=== PATIENT | female | born 1975 | race Caucasian/White ===

== ENCOUNTER → 2018-03-24 00:11 | Outpatient (CLI) | payer BC, SELFPAY ==
--- NOTE | 2018-03-24 10:44 | DI.REPORT_ITS ---
SYMPTOM/DIAGNOSIS: PREVENTIVE CARE Z00.00, SCREENING BILATERAL SCREENING MAMMOGRAM: Mammograms were interpreted according to the usual protocol including computer analysis with CAD system, tomosynthesis and C view imaging. Comparison is made with exams from 2009 through 2016. The breasts are composed of heterogeneously dense fibroglandular tissue, breast density Category C. No suspicious masses or suspicious microcalcifications are seen. There has been no significant change. IMPRESSION: Category 1-C, negative mammogram. Yearly screening mammography is recommended. [facility] ASSESSMENT OF FINDINGS: Negative. Category 1. Patient will receive a letter notifying them of these results. Bi-RADS category C. The breasts are heterogeneously dense, which may obscure small masses.
== END ==
PROVIDERS: PCP Family Medicine; Visit Provider Nurse Practitioner Family
DX: Z12.31 Encounter for screening mammogram for malignant neoplasm of breast (principal)
CPT/HCPCS: 77063; 77067

== ENCOUNTER 2018-12-15 09:04 | Outpatient (REF) | payer BC, SELFPAY ==
[2018-12-15 12:48] LABS: TSH (W/Ref FT4) 3.15 uIU/mL (0.358-3.74)
== END 2018-12-15 09:24 ==
LOC: NCHCN 09:04
PROVIDERS: PCP Family Medicine; Visit Provider Nurse Practitioner Family
DX: R53.83 Other fatigue (principal)
CPT/HCPCS: 84443

== ENCOUNTER 2019-07-06 01:36 | Outpatient (CLI) | payer BC, SELFPAY ==
--- NOTE | 2019-07-06 16:15 | DI.MAMMO_ITS ---
EXAM: MG MAMMO SCREENING CLINICAL HISTORY: SCREENING, Z12.31, PREVENTATIVE CARE, Z00.00 TECHNIQUE: Bilateral full field digital CC and MLO mammographic images were obtained with 3D tomosyn thesis and utilizing computer aided detection (CAD). COMPARISON: Available for comparison. FINDINGS: Masses/Architectural Distortion: None seen. Microcalcifications: No suspicious pleomorphic-type are seen. Skin Thickening/Nipple Retraction: None. IMPRESSION: 1. No significant interval change with no specific features of malignancy noted. 2. Unless there is more urgent need, screening mammography is recommended, as per [place] [employer] guidelines. ACR BI-RAD Category- 1 Negative Breast Density - Category C - Heterogeneously dense The mammogram demonstrates the patient's breast tissue is dense. Dense breast tissue is very common a nd is not abnormal but dense breast tissue can make it harder to find cancer on a mammogram. Also, de nse breast tissue may increase their breast cancer risk. This information about the result of the [facility] mogram report was provided to the patient to raise their awareness. Use this report when you speak wi th the patient about their risks for breast cancer, which includes their family history. At that time , you may recommend for more screening tests (Ultrasound or MRI) as they might be useful based on the ir risk. A negative radiographic report should not delay biopsy if a dominant or clinically suspicious mass is present. Up to ten percent of cancers are not identified on mammography. A negative report may reinforce clinical impression. Adenosis and dense breasts may obscure an underlying neoplasm. False positive reports average 6 to 10%. Patient will receive a letter notifying them of these results.
== END 2019-07-06 01:56 ==
PROVIDERS: PCP Family Medicine; Visit Provider Nurse Practitioner Family
DX: Z12.31 Encounter for screening mammogram for malignant neoplasm of breast (principal)
CPT/HCPCS: 77063; 77067

== ENCOUNTER 2020-08-05 01:00 | Outpatient (CLI) | payer BC, SELFPAY ==
--- NOTE | 2020-08-05 16:10 | DI.MAMMO_ITS ---
EXAM: MG MAMMO SCREENING CLINICAL HISTORY: SCREENING,[facility],Z00.00 TECHNIQUE: Bilateral full field digital CC and MLO mammographic images were obtained with 3D tomosyn thesis and utilizing computer aided detection (CAD). COMPARISON: Available for comparison. FINDINGS: Masses/Architectural Distortion: None seen. Microcalcifications: No suspicious pleomorphic-type are seen. Skin Thickening/Nipple Retraction: None. IMPRESSION: 1. No significant interval change with no specific features of malignancy noted. 2. Unless there is more urgent need, screening mammography is recommended, as per [place] [employer] guidelines. BI-RADS Category 1 - Negative Breast Density - Category C - Heterogeneously dense Breast density category C or D implies that the patient has dense breast tissue. Dense breast tissue is very common and is not abnormal but dense breast tissue can make it harder to find cancer on a ma mmogram. Also, dense breast tissue may increase their breast cancer risk. This information about the result of the mammogram report was provided to the patient to raise their awareness. Use this report when you speak with the patient about their risks for breast cancer, which includes their family hist ory. At that time, you may recommend for more screening tests (Ultrasound or MRI) as they might be us eful based on their risk. A negative radiographic report should not delay biopsy if a dominant or clinically suspicious mass is present. Up to ten percent of cancers are not identified on mammography. A negative report may reinforce clinical impression. Adenosis and dense breasts may obscure an underlying neoplasm. False positive reports average 6 to 10%. Patient will receive a letter notifying them of these results.
== END 2020-08-05 01:20 ==
PROVIDERS: PCP Family Medicine; Visit Provider Nurse Practitioner Family
DX: Z12.31 Encounter for screening mammogram for malignant neoplasm of breast (principal); Z00.00 Encounter for general adult medical examination without abnormal findings
CPT/HCPCS: 77063; 77067

== ENCOUNTER 2021-01-09 18:09 | Outpatient (REF) | payer BC, SELFPAY ==
[2021-01-10 08:56] LABS: HCT 37.9 % (36.0-46.0); HGB 12.8 g/dL (11.2-15.7); MCH 30.3 pg (27.0-33.0); MCHC 33.8 % (32.0-36.0); MCV 89.8 fL (80-95); MPV 10.2 fL (8.0-11.0); Platelet Count 283 10^3/uL (130-400); RBC 4.22 10^6/uL (3.93-5.22); RDW 12.4 % (11.7-14.6); RDW-SD 40.5 fL; WBC 6.71 10^3/uL (4.4-10.8)
[2021-01-10 09:31] LABS: Anion Gap 10.4 mmol/L (3-11); BUN 19 mg/dL (7-18); CO2 25.6 mmol/L (21.0-32.0); Calcium 8.9 mg/dL (8.5-10.1); Chloride 105 mmol/L (98-107); Estimated GFR 59.43 (mL/min/1.73m2); Glucose 93 mg/dL (74-106); Sodium 141 mmol/L (136-145); TSH (W/Ref FT4) 2.16 uIU/mL (0.36-3.74)
[2021-01-12 09:24] LABS: HIV-1/2 Ag & Ab Screen Negative (Negative)
== END 2021-01-09 18:10 | disposition home or self-care (01) ==
LOC: NCHCN 18:09
PROVIDERS: PCP Family Medicine; Visit Provider Nurse Practitioner Family
DX: R00.2 Palpitations (principal); G43.909 Migraine, unspecified, not intractable, without status migrainosus; Z11.4 Encounter for screening for human immunodeficiency virus [HIV]
CPT/HCPCS: 80048; 85027; 87389; 84443

== ENCOUNTER 2021-11-28 02:18 | Outpatient (CLI) | payer BC, SELFPAY ==
[2021-11-28 12:15] LABS: Source Nasal/Nares
[2021-11-28 14:27] LABS: COVID-19 PCR Negative (Negative)
== END 2021-11-28 02:19 | disposition home or self-care (01) ==
LOC: LBO 02:18
PROVIDERS: PCP Family Medicine; Visit Provider Surgery
DX: Z20.822 Contact with and (suspected) exposure to COVID-19 (principal); Z01.818 Encounter for other preprocedural examination
CPT/HCPCS: 87635

== ENCOUNTER 2021-12-01 09:10 | Day surgery (SDC) | payer BC, SELFPAY ==
--- NOTE | 2021-12-01 06:32 | W.COLOREPORT ---
Colonoscopy Report Date of procedure: 12/01/21 Pre-op diagnosis general: Colon Cancer Screening Post-op diagnosis procedure note: same Procedure: Colonoscopy Surgeon: Kathy Hawthorne Anesthesia Type: General:No Airway Estimated blood loss (mL): 0 Pathology: none sent Complications: None Disposition: same day Indications: The patient is here for Colonoscopy pre-op.? She has no family history of colon cancer. She has not had any bowel habit changes. -Discussed colonoscopy bowel prep as well as the procedure. Discussed possible complications of the procedure to include bleeding, pain, perforation, missed small lesion/polyp, sore throat, aspiration and adverse reaction to the medications. Questions were answered to patient?s satisfaction. No guarantees were implied or given.? Prep: Miralax/Dulcolax Procedure Start Time: 10:10 Procedure End Time: 10:29 Retraction Time: 12 minutes Findings: Normal colonoscopy Procedure Description: After informed consent was obtained the patient was taken to the procedure room and placed in a left decubitous position. Monitors were applied and a time out was done. The patients name, date of , procedure, allergies to medications and metal in their body was reviewed. The patient was then sedated. Once sedated and comfortable a rectal exam was done. External exam was normal. Internal exam revealed a normal sphincter tone and no palpable masses. The scope was then introduced and retro-flexed. No internal hemorrhoids, polyps or masses were identified on retro-flexion. The scope was then advanced to the cecum without difficulty. The ileocecal vlave and appendiceal orifice were identified. The prep was good. The scope was then slowly retracted over 12 minutes back into the rectum. there were no Polyps. There was no diverticulosis noted. The scope was removed and the patient was woken up and taken back to Same day surgery in stable condition. The patient tolerated the procedure well and there were no immediate complications. Follow up: The patient should follow up in 10 years unless they develop changes in bowel habits or other new gastrointestinal complaints.
--- NOTE | 2021-12-01 06:33 | W.PM.DSUDISC ---
Discharge Plan Disposition Patient Disposition: HOME Condition: Good Discharge Details Reason For Visit: Colonoscopy Attending Provider: Kathy Hawthorne Primary Care Provider: Alee Woodruff Home Meds and New Rx's Prescriptions: Continued riboflavin (vitamin B2) 100 mg tablet 100 mg PO DAILY 0RF magnesium oxide 200 mg magnesium tablet 200 mg PO DAILY 0RF rizatriptan [Maxalt-CHANGE BOOTH ATTENDANT] 10 mg tablet,disintegrating 10 mg PO ONCE PRN0RF Rx Instructions: may repeat once after at least 2 hours ibuprofen [Advil] 200 mg Tablet 200 mg PO Q6H PRN0RF Discontinued bisacodyl [Dulcolax (bisacodyl)] 5 mg tablet,delayed release (DR/EC) 5 mg PO ONCE Qty: 4 0RF Rx Instructions: Take according to provider's instructions for colonoscopy prep. polyethylene glycol 3350 17 gram/dose powder 17 g PO ONCE Qty: 238 0RF Rx Instructions: To be taken as directed by prescriber's office for colonoscopy prep. Discharge Instructions Additional Instructions: Findings: Normal colon Follow up: 10 years Please call if you develop: fevers >101.5 Nausea or Vomiting Abdominal pain that is not transient Rectal bleeding that is more then a tbsp A hard abdomen and inability to pass gas DAY SURGERY UNIT POST ENDOSCOPY INSTRUCTIONS Instructions for everyone who is given Anesthesia: For your safety, please do the following for the next 24 Hours: a. Do not drive or operate dangerous equipment b. Do not drink alcohol beverages or use any recreational drugs for the first 24 hours or while taking pain medications. The medications in your body may have a reaction that can be dangerous. c. Do not make any important decisions or sign any important papers 1. Generally there are no restrictions on your activity after a day or so has gone by, but you may feel a bit fatigued for a few days. 2. After you arrive home you may have a light meal and return to a normal diet as you can tolerate it without feeling sick to your stomach. 3. After surgery, you may feel pain or discomfort. This should be only transient, but if it persists please contact your doctor. 4. If there are any questions regarding the findings of your procedure, please feel free to contact your doctor. 6. If you are unable to contact your doctor with a problem, contact the hospital at [phone]. 7. Continue all your regular medications unless directed otherwise. I understand the above instructions and have no questions. Signature of Patient or Responsible Adult Escort Date/Time Name of Responsible Adult Escort Signature of Nurse Date/Time Activity:: Activity as Tolerated Diet:: As Tolerated Discharge Orders Discharge Orders: Discharge Order (Routine); Ordered 12/01/21 Ordered By: Kathy Hawthorne
--- NOTE | 2021-12-01 09:23 | ANES.PREOP_ITS ---
General Info Height: 5 ft 5 in Weight: 71.668 kg Body Mass Index (BMI): 26.2 Surgical Procedure: Operation Date: 12/01/21 09:50 Proposed Procedure Side Surgeon p Colonoscopy Kathy Hawthorne MD Meds Allergies and Home Medications Allergies Allergy/AdvReac Type Severity Reaction Status Date / Time tramadol AdvReac Intermediate projectile Verified 12/01/21 09:18 vomitting Home Medication Medication Instructions Recorded magnesium oxide 200 mg PO DAILY 05/15/21 riboflavin (vitamin B2) 100 mg 100 mg PO DAILY 05/15/21 tablet rizatriptan 10 mg disintegrating 10 mg PO ONCE PRN 05/15/21 tablet (Maxalt-COMPOUNDING [employer] FINISHING SUPERVISOR) bisacodyl 5 mg tablet,delayed 5 mg PO ONCE #4 tab 11/20/21 release (Dulcolax (bisacodyl)) polyethylene glycol 3350 17 17 g PO ONCE #238 g 11/20/21 gram/dose oral powder ibuprofen 200 mg tablet (Advil) 200 mg PO Q6H PRN 12/01/21 Current Visit Medications: Current Medications Generic Name Dose Route Start Last Admin Trade Name Freq PRN Reason Stop Dose Admin Hyoscyamine Sulfate 0.125 mg 12/01/21 06:34 Hyoscyamine 0.125 Mg Sl/Oral/Chew SL DIRECTED PRN Ringer's Solution 1,000 mls @ 80 mls/hr 12/01/21 06:00 IV 12/28/21 23:59 INFUSION [facility] IV Miscellaneous Supplies 1 each 12/01/21 06:00 Iv Access IV 12/28/21 23:59 DIRECTED ALISON Ondansetron HCl 4 mg 12/01/21 06:34 Ondansetron 4 Mg/2 Ml Vial IVP Q4H PRN PRN Nausea / Vomiting Sodium Chloride 0 ml 12/01/21 06:00 Normal Saline Flush 10 Ml Syr IV 12/28/21 23:59 PRN PRN Sodium Chloride 0 ml 12/01/21 06:00 Normal Saline 10 Ml Vial IJ 12/28/21 23:59 DIRECTED PRN Sterile Water 0 ml 12/01/21 06:00 Water,Injection,Sterile 10 Ml Vial IJ 12/28/21 23:59 DIRECTED PRN PFSH Active Problems Active Problems: Problem Status Onset Code Rosacea L71.9 Bilateral carpal tunnel syndrome G56.03 Adjustment disorder with mixed anxiety and depressed mood F43.23 Palpitations R00.2 Migraines G43.909 Screening for colon cancer Z12.11 Tobacco Smoking/Tobacco Use Status: Never Alcohol Alcohol Intake: current Alcohol intake frequency: a few times a week Alcohol type: beer and wine Substance Use Substance use: Never Substance use type: does not use Vital Signs and Lab Results Lab Results Blood Type / Crossmatch: No Data to Display Complete Blood Count: No Data to Display Complete Metabolic Panel: No Data to Display Liver Function Panel: No Data to Display Coagulation Panel: No Data to Display Cardiac Panel: No Data to Display Arterial Blood Gas: No Data to Display Venous Blood Gas: No Data to Display Pancreas Panel: No Data to Display Thyroid Panel: No Data to Display Infectious Disease: Coronavirus (COVID-19)(PCR) Negative (Negative) 11/28/21 08:18 11/28/21 Coronavirus 2019 Source Nasal/Nares 11/28/21 08:18 11/28/21 Blood Cultures: No Data to Display Toxicology Panel: No Data to Display Panel: No Data to Display Anesthesia Assessment and Plan Anesthesia History Personal History: No History of Anesthesia Complications Family History: No Family History of Anesthesia Complications Exercise Tolerance Exercise Tolerance: Metabolic Equivalents>4 Cardiac & Pulmonary Exam Cardiac Exam: Normal S1/S2 Heart Sounds Pulmonary Exam: Clear Bilateral Breath Sounds Implantable Cardiac Device Does patient have a Pacemaker or an ICD?: No Airway Exam Known Difficult Airway: No ASA Classification ASA Score: ASA 2 Emergency Case?: No NPO Status NPO Status: NPO Clears >2 hours, Solids >8 hours Status Status: Not Relevant due to Medical History Anesthesia Plan Resuscitation Status: Full Code Anesthesia Technique: General Anesthesia Airway Planned: Natural Airway Pain Management: Surgeon and patient request nerve block Monitors Used: Standard Monitors Preoperative Comments:: 46 yo female for screening colo. Sig PMHx: denies major.
[2021-12-01 09:28] VITALS: BP 129/77; PULSE 76; RESP 18; TEMP 36.3; O2SAT 100
--- NOTE | 2021-12-01 09:54 | W.ANESPRE ---
General Info Date of Service Date Performed: 12/01/21 Height: 5 ft 5 in Weight: 69.6 kg Body Mass Index (BMI): 25.5 Surgical Procedure: Operation Date: 12/01/21 09:50 Proposed Procedure Side Surgeon p Colonoscopy Kathy Hawthorne MD Actual Procedure Side Surgeon p Colonoscopy Kathy Hawthorne MD Meds Allergies and Home Medications Allergies Allergy/AdvReac Type Severity Reaction Status Date / Time tramadol AdvReac Intermediate projectile Verified 12/01/21 09:18 vomitting Home Medication Medication Instructions Recorded magnesium oxide 200 mg PO DAILY 05/15/21 riboflavin (vitamin B2) 100 mg 100 mg PO DAILY 05/15/21 tablet rizatriptan 10 mg disintegrating 10 mg PO ONCE PRN 05/15/21 tablet (Maxalt-TICKET SELLER) bisacodyl 5 mg tablet,delayed 5 mg PO ONCE #4 tab 11/20/21 release (Dulcolax (bisacodyl)) polyethylene glycol 3350 17 17 g PO ONCE #238 g 11/20/21 gram/dose oral powder ibuprofen 200 mg tablet (Advil) 200 mg PO Q6H PRN 12/01/21 Current Visit Medications: Current Medications Generic Name Dose Route Start Last Admin Trade Name Freq PRN Reason Stop Dose Admin Hyoscyamine Sulfate 0.125 mg 12/01/21 06:34 Hyoscyamine 0.125 Mg Sl/Oral/Chew SL DIRECTED PRN Ringer's Solution 1,000 mls @ 80 mls/hr 12/01/21 06:00 IV 12/28/21 23:59 INFUSION [facility] IV Miscellaneous Supplies 1 each 12/01/21 06:00 Iv Access IV 12/28/21 23:59 DIRECTED [facility] Ondansetron HCl 4 mg 12/01/21 06:34 Ondansetron 4 Mg/2 Ml Vial IVP Q4H PRN PRN Nausea / Vomiting Sodium Chloride 0 ml 12/01/21 06:00 Normal Saline Flush 10 Ml Syr IV 12/28/21 23:59 PRN PRN Sodium Chloride 0 ml 12/01/21 06:00 Normal Saline 10 Ml Vial IJ 12/28/21 23:59 DIRECTED PRN Sterile Water 0 ml 12/01/21 06:00 Water,Injection,Sterile 10 Ml Vial IJ 12/28/21 23:59 DIRECTED PRN PFSH Active Problems Active Problems: Problem Status Onset Code Lynn L71.9 Bilateral carpal tunnel syndrome G56.03 Adjustment disorder with mixed anxiety and depressed mood F43.23 Palpitations R00.2 Migraines G43.909 Screening for colon cancer Z12.11 Tobacco Smoking/Tobacco Use Status: Never Alcohol Alcohol Intake: current Alcohol intake frequency: a few times a week Alcohol type: beer and wine Substance Use Substance use: Never Substance use type: does not use Vital Signs and Lab Results Vital Signs Most Recent Vital Signs in EMR: Most Recent Vital Signs Temp Pulse Resp BP Pulse Ox 36.3 C L 76 18 129/77 100 12/01/21 09:28 12/01/21 09:28 12/01/21 09:28 12/01/21 09:28 12/01/21 09:28 Point of Care Results Point of Care Results: POC- Test(urine) Negative 12/01/21 09:37 Lab Results Blood Type / Crossmatch: No Data to Display Complete Blood Count: No Data to Display Complete Metabolic Panel: No Data to Display Liver Function Panel: No Data to Display Coagulation Panel: No Data to Display Cardiac Panel: No Data to Display Arterial Blood Gas: No Data to Display Venous Blood Gas: No Data to Display Pancreas Panel: No Data to Display Thyroid Panel: No Data to Display Infectious Disease: Coronavirus (COVID-19)(PCR) Negative (Negative) 11/28/21 08:18 11/28/21 Coronavirus 2019 Source Nasal/Nares 11/28/21 08:18 11/28/21 Blood Cultures: No Data to Display Toxicology Panel: No Data to Display Panel: No Data to Display Anesthesia Assessment and Plan Anesthesia History Personal History: No History of Anesthesia Complications Family History: No Family History of Anesthesia Complications Exercise Tolerance Exercise Tolerance: Metabolic Equivalents>4 Pertinent Negatives Pertinent Negatives: No Symptoms of GERD, No Major Cardiovascular Symptoms or Complaints, No Major Pulmonary Symptoms or Complaints and No History of CVA/TIA Cardiac & Pulmonary Exam Cardiac Exam: Normal S1/S2 Heart Sounds Pulmonary Exam: Clear Bilateral Breath Sounds Implantable Cardiac Device Does patient have a Pacemaker or an ICD?: No Airway Exam Known Difficult Airway: No Mallampati Class: 1 Mouth Opening: Normal (> 3cm) Thyromental Distance: Greater than 3 cm Neck Range of Motion: Full ROM Neck Circumference: Normal Teeth Condition: Normal Dentition ASA Classification ASA Score: ASA 2 Emergency Case?: No NPO Status NPO Status: NPO Clears >2 hours, Solids >8 hours Status Status: Negative HCG Anesthesia Plan Resuscitation Status: Full Code Anesthesia Technique: General Anesthesia Airway Planned: Natural Airway Monitors Used: Standard Monitors
[2021-12-01 09:56] VITALS: BMI 25.5
[2021-12-01] MEDS: Lactated Ringers 1,000 ML 80 ML IV (09:56)
[2021-12-01 10:35] VITALS: BP 101/75; PULSE 66; RESP 18; TEMP 36.7; O2SAT 99
--- NOTE | 2021-12-01 10:37 | W.ANESPOSTOP ---
Postoperative Evaluation Date, Time and Location Date Performed: 12/01/21 Time Performed: 10:37 Patient Location: Day Surgery Unit Vital Signs Most Recent Imported Vital Signs: Most Recent Vital Signs Temp Pulse Resp BP Pulse Ox 36.3 C L 76 18 129/77 100 12/01/21 09:28 12/01/21 09:28 12/01/21 09:28 12/01/21 09:28 12/01/21 09:28 Most Recent Manually Entered Vital Signs: Adult Blood Pressure: 101/75 Heart Rate: 61 Respirations: 10 Oxygen Saturation (%): 98 Temperature (C): 36.3 C Pain Score (0-10 Scale): 0 Pain Score Most Recent Pain Score: Most Recent Pain Score Pain Level 0 12/01/21 09:28 Assessment Mental Status: Awake (Alert & Oriented to Patient Baseline) Airway and Respiratory Function: Patent airway with normal (patient baseline) respiratory exam Cardiovascular Function: Hemodynamically Stable Hydration Status: Adequately Hydrated Nausea & Vomiting: No Nausea or Vomiting Pain: Pt. Denies Any Pain Peripheral Nerve Block: Patient did not receive a nerve block
[2021-12-01 10:38] VITALS: BP 101/75; PULSE 61; RESP 10; TEMPC 36.3; O2SAT 98
[2021-12-01 11:05] VITALS: BP 125/77; PULSE 58; RESP 18; TEMP 36.3; O2SAT 99
== END 2021-12-01 11:26 | disposition home or self-care (01) ==
PROVIDERS: PCP Family Medicine; Visit Provider Surgery
PROC: 0DJD8ZZ Inspection of Lower Intestinal Tract, Via Natural or Artificial Opening Endoscopic (ICD-10-PCS; CPT 45378; principal; 2021-12-01 09:45)
DX: Z12.11 Encounter for screening for malignant neoplasm of colon (principal); G43.909 Migraine, unspecified, not intractable, without status migrainosus; L71.9 Rosacea, unspecified
CPT/HCPCS: 45378; J2001

== ENCOUNTER 2022-04-13 14:39 | Outpatient (REF) | payer BC, SELFPAY ==
--- NOTE | 2022-04-13 08:30 | PAPFT_PTH ---
PATIENT: Patricia Andrew LOC: [facility]#:[id number] AGE/SX: 46/F ROOM: RE04/13/[address]: JOYCE SUAREZ NP : [id number] BED: DIS: 04/13/2022 SPEC #: [id number] RECD: 04/13/22 18:50 STATUS: JASON REArmida #: [id number] MICHELINE: 04/13/22 08:[address]: JOYCE SUAREZ DEPT: [facility] Cytology RECD BY: Kareen Holcomb ENTERED: 04/13/22 18:50 SP TYPE: PAPFT VANDANA DR: Alee Woodruff Tissues: 1 - CX/ENDOCX FOR PAP SMEARS Procedures: PAP THIN PREP/[facility] Screening HPV DNA PROBE Comments: [id number]
[2022-04-13 15:51] LABS: Anion Gap 6.8 mmol/L (3-11); BUN 15 mg/dL (7-18); CO2 31.2 mmol/L (21.0-32.0); CREATININE 0.9 mg/dL (0.55-1.02); Calcium 8.9 mg/dL (8.5-10.1); Calculated LDL 123 mg/dL (<100); Chloride 103 mmol/L (98-107); Cholesterol 205 mg/dL (<200); Glucose 104 mg/dL (74-106); HDL Cholesterol 52 mg/dL (40-60); Sodium 141 mmol/L (136-145); Triglyceride 150 mg/dL (<150)
== END 2022-04-13 14:40 | disposition home or self-care (01) ==
LOC: NCHCN 14:39
PROVIDERS: PCP Family Medicine; Visit Provider Nurse Practitioner Family
DX: Z12.4 Encounter for screening for malignant neoplasm of cervix (principal); Z11.51 Encounter for screening for human papillomavirus (HPV); F43.23 Adjustment disorder with mixed anxiety and depressed mood; G43.829 Menstrual migraine, not intractable, without status migrainosus
CPT/HCPCS: 80048; 80061; 88142; 87624

== ENCOUNTER → 2022-05-06 01:11 | Outpatient (CLI) | payer BC, SELFPAY ==
--- NOTE | 2022-05-06 18:16 | DI.MAMMO_ITS ---
Exam(s) MAMMO SCREENING EXAM: MAMMO SCREENING CLINICAL HISTORY: SCREENING FOR BREAST CANCER Z12.39 TECHNIQUE: Bilateral full field digital CC and MLO mammographic images were obtained with 3D tomosyn thesis and utilizing computer aided detection (CAD). COMPARISON: Available for comparison. FINDINGS: Masses/Architectural Distortion: None seen. Microcalcifications: No suspicious pleomorphic-type are seen. Skin Thickening/Nipple Retraction: None. IMPRESSION: 1. No significant interval change with no specific features of malignancy noted. 2. Unless there is more urgent need, screening mammography is recommended, as per [place] [employer] guidelines. BI-RADS Category 1 - Negative Breast Density - Category C - Heterogeneously dense Breast density category C or D implies that the patient has dense breast tissue. Dense breast tissue is very common and is not abnormal but dense breast tissue can make it harder to find cancer on a ma mmogram. Also, dense breast tissue may increase their breast cancer risk. This information about the result of the mammogram report was provided to the patient to raise their awareness. Use this report when you speak with the patient about their risks for breast cancer, which includes their family hist ory. At that time, you may recommend for more screening tests (Ultrasound or MRI) as they might be us eful based on their risk. A negative radiographic report should not delay biopsy if a dominant or clinically suspicious mass is present. Up to ten percent of cancers are not identified on mammography. A negative report may reinforce clinical impression. Adenosis and dense breasts may obscure an underlying neoplasm. False positive reports average 6 to 10%. Patient will receive a letter notifying them of these results.
== END ==
PROVIDERS: PCP Family Medicine; Visit Provider Nurse Practitioner Family
DX: Z12.31 Encounter for screening mammogram for malignant neoplasm of breast (principal)
CPT/HCPCS: 77063; 77067

== ENCOUNTER 2022-06-21 09:15 | Emergency (ER) | payer BC, SELFPAY ==
[2022-06-21 09:23] VITALS: BP 122/95; PULSE 72; RESP 16; TEMP 36.9; O2SAT 97
--- NOTE | 2022-06-21 09:48 | ED.GENADUL_ITS ---
Discharge Plan Disposition Patient Disposition: HOME Condition: Stable Discharge Details Clinical Impression: Right knee sprain Primary Care Provider: Alee Woodruff ED Provider: Ramon Welch Home Meds and New Rx's Prescriptions: Continued riboflavin (vitamin B2) 100 mg tablet 100 mg PO DAILY magnesium oxide 200 mg magnesium tablet 200 mg PO DAILY rizatriptan [Maxalt-INFRASTRUCTURE ENGINEER] 10 mg tablet,disintegrating 10 mg PO ONCE PRN Rx Instructions: may repeat once after at least 2 hours ibuprofen [Advil] 200 mg Tablet 200 mg PO Q6H PRN Discharge Instructions Instructions: Knee Sprain (ED) Additional Instructions: It is recommended to use crutches for the next 2 to 3 days then slowly advance activity as tolerated. Wear knee brace with any sort of activity for the next 4 to [address] you on a follow-up list for orthopedics for reassessment and further imaging if needed. If you develop any new or significant worsening of symptoms feel free to return to the emergency department for reassessment. Referrals: [facility] [Provider Group] Discharge Data Discharge Date/Time-TO BE ENTERED AT DEPARTURE: 06/21/22 09:58 Medical Decision Making Patient presenting to the emergency department for chief complaint of right knee injury. She states last week while hiking she had a hard step that caused her to have some discomfort in her right knee. Over the course of the week she favored the left leg and did see some improvement in her discomfort. Then yesterday evening while out dancing with high heels she felt a pop and pain in her right knee causing significant discomfort and feelings of instability. Patient denies any other injury or trauma or complaint. Physical exam shows no bony prominence tenderness, patient can walk more than 4 steps, and no ecchymosis noted and no tenderness to palpation of any aspect of the knee. Patient does have slight laxity to the lateral ligament but denies any pain with ligamentous testing. Patient states most of her pain and discomfort is internal knee to the posterior knee. Anterior and posterior drawer test is negative for laxity or pain. I do not feel that patient requires radiological imaging on emergent basis as I suspect ligamentous injury. Will place patient in hinged knee brace and patient states she already has crutches. Will place patient on follow-up for orthopedist for further evaluation and consideration of advanced imaging if not improving with conservative management. Patient is concerned as she does perform multiple winter sports. Encourage patient to rest over the next 1 to 2 weeks and slowly advance activity as tolerated if improving well. After discussion of diagnosis and plan of care patient has no further needs, questions, or concerns and states clear understanding to return to the emergency department for any worsening symptoms. This documentation was generated using [employer] dictation system, please disregard any oddities of phrase or misspellings. HPI General Mode of arrival: ambulatory . Date/Time Provider Initiated Documentation: 06/21/22 09:19 . Limitations to Documentation: no limitations . Information obtained by: RN notes reviewed . History of Present Illness 46 year old F presents to the emergency department with the chief complaint of right knee injury, described as moderate, with intensity rated at 5. Quality is described as aching, and is localized to the right and lower extremity. Patient started experiencing this week(s) (1) and it has been constant. Rest improves symptom(s), Movement worsens symptoms (walking/weightbearing) . Patient notes no other symptoms.. Patient did receive the following treatments prior to arrival, NSAID Related Data Home Medications Medication Instructions Recorded Confirmed magnesium oxide 200 mg PO DAILY 05/15/21 06/21/22 riboflavin (vitamin B2) 100 mg 100 mg PO DAILY 05/15/21 06/21/22 tablet rizatriptan 10 mg disintegrating 10 mg PO ONCE PRN 05/15/21 06/21/22 tablet (Maxalt-INFRASTRUCTURE ENGINEER) ibuprofen 200 mg tablet (Advil) 200 mg PO Q6H PRN 12/01/21 06/21/22 Allergies Allergy/AdvReac Type Severity Reaction Status Date / Time tramadol AdvReac Intermediate projectile Verified 06/21/22 09:31 vomitting General Stated Complaint: Orthopedic LEONELA: 4 Review of Systems Narrative: 8 systems reviewed and unremarkable except what is marked below. Musculoskeletal Musculoskeletal: Reports as per HPI, Reports abnormal gait, Reports arthralgias, Denies joint swelling, Denies limited range of motion, Denies numbness and Denies tingling Integumentary/Breasts Skin/Breast: Denies unusual bruising and Denies wounds Neurologic Neurologic: Reports abnormal gait, Denies numbness and Denies tingling PFSH All Active Problems Right knee sprain (Acute) Normal colonoscopy (Acute) Rosacea (Acute) Bilateral carpal tunnel syndrome (Acute) Adjustment disorder with mixed anxiety and depressed mood (Acute) Palpitations (Acute) Migraines (Chronic) Screening for colon cancer (Acute) Surgical History History of colonoscopy (~11/2021) Social History Smoking/Tobacco Use Status: Never Smoking risk assessment performed?: Yes Alcohol Intake: current Alcohol Intake frequency: a few times a week Alcohol type: beer and wine Drug use: Never Substance use type: does not use Do you feel safe at home: Yes Do you feel safe in your relationship?: Yes Exam Const General: cooperative, no acute distress and not ill appearing Orientation: alert, awake and oriented x3 Resp Effort & Inspection: normal respiratory effort, able to speak in complete sentences and no respiratory distress Cardio Rate: regular rate Rhythm: regular rhythm Pulses: normal peripheral pulses Skin General skin exam: no rashes or lesions noted Neuro General: patient alert, patient awake, patient oriented x3, moves all extremities and no focal motor deficits Sensory Exam: no sensory deficits noted Extrem General: normal exam except as noted Right lower extremity: knee Details: normal to inspection, normal ROM, knee ligament exam normal Details: anterior drawer test normal and posterior drawer test normal; no pain with axial loading and knee ligament exam abnormal Details: valgus stress test normal Details: laxity noted and varus stress test normal Details: laxity noted; no tenderness, no abrasions, no lacerations and no ecchymosis and lower leg Details: normal to inspection; no tenderness Left lower extremity: normal to inspection and full ROM Course Vital Signs Vital signs: Vital Signs Temperature 36.9 C 06/21/22 09:23 Pulse 72 06/21/22 09:23 Respiratory Rate 16 06/21/22 09:23 Blood Pressure 122/95 H 06/21/22 09:23 Pulse Oximetry 97 06/21/22 09:23 Temperature 36.9 C 06/21/22 09:23 Temperature Source Tympanic 06/21/22 09:23 Pulse 72 06/21/22 09:23 Respiratory Rate 16 06/21/22 09:23 Respiratory Effort 06/21/22 09:32 Blood Pressure 122/95 H 06/21/22 09:23 Blood Pressure Position Sitting 06/21/22 09:23 Pulse Oximetry 97 06/21/22 09:23 Oxygen Delivery Method Room Air 06/21/22 09:23 Oxygen Flow Rate 0 06/21/22 09:23 Pain Level 5 06/21/22 09:33 Comment ibuprofen last night and this morning 06/21/22 09:23 PAWSS Have you Been Recently Intoxicated or Drunk Within the Last 30 days?: No Have you Ever Experienced Previous Episodes of Alcohol Withdrawal?: No Have you ever Experienced Withdrawal Seizures?: No Have you ever Experienced Delirium Tremens(DT)s?: No Have you ever undergone Alcohol Rehabilitation Treatment (i.e, inpt ot outpatient treatment programs)?: No Have you ever Experienced Blackouts?: No Have you ever Combined Alcohol with other Downers within the last 90 days?: No Have you ever Combined Alcohol with any other Substance of Abuse during the last 90 days?: No Positive Blood Alcohol level on Presentation? [PCS.BAL]: No Evidence of Increased Autonomic Activity (i.e. HR>120, tremor, sweating, a gitation, nausea)?: No Result: 0
== END 2022-06-21 09:58 | disposition home or self-care (01) ==
PROVIDERS: Emergency Provider Nurse Practitioner Family; PCP Family Medicine
DX: S83.91XA Sprain of unspecified site of right knee, initial encounter (principal); X50.1XXA Overexertion from prolonged static or awkward postures, initial encounter; Y93.41 Activity, dancing
CPT/HCPCS: 99281; 99282

== ENCOUNTER 2022-07-06 11:01 | Outpatient (CLI) | payer BC, SELFPAY ==
--- NOTE | 2022-07-06 10:45 | DI.RAD_ITS ---
Exam(s) XR KNEE RT 4V AP,LAT,HOMERO,PAT EXAM: XR KNEE RT 4V AP,LAT,HOMERO,PAT CLINICAL HISTORY: continued pain. TECHNIQUE: 2D digital imaging was performed. Three views. COMPARISON: No exams were available for comparison FINDINGS: BONES: No acute fracture is present. No bony destructive lesion is seen. JOINTS: The knee is normally aligned. No joint effusion is seen. Joint spaces are maintained. No si gnificant degenerative changes. SOFT TISSUE: Normal. IMPRESSION: Unremarkable radiographs of the right knee. DATA REPOSITORY: RADIATION DOSE DELIVERED:
== END 2022-07-06 11:02 | disposition home or self-care (01) ==
LOC: DIORS 11:02
PROVIDERS: PCP Family Medicine; Referring Provider Family Medicine; Visit Provider Physician Assistant Surgical
DX: M25.561 Pain in right knee (principal)
CPT/HCPCS: 73564

== ENCOUNTER → 2022-07-29 02:44 | Outpatient (CLI) | payer BC, SELFPAY ==
--- NOTE | 2022-07-29 06:30 | DI.MRI_ITS ---
Exam(s) MR LOWER JOINT RT WO EXAM: MR LOWER JOINT RT WO CLINICAL HISTORY: PAIN,RT KNEE SPRAIN, S83.91XA TECHNIQUE: Multiplanar multisequence MRI was performed.. COMPARISON: No exams were available for comparison FINDINGS: MR examination of the knee was performed according to the usual protocol. There is a small knee joint effusion. There is a tiny Martinez's cyst. There is abnormal signal in the lateral tibial plateau consistent with bony trabecular injury without evidence of discrete fracture .. Medial tibiofemoral joint: The articular cartilage of the femur and tibia appears well maintained. T here is an apparent attachment tear of the medial meniscus posteriorly which is nondisplaced. The me dial collateral ligament appears intact. No posteromedial corner injury seen. Lateral tibiofemoral joint: The articular cartilage of the femur and tibia appears well maintained. The meniscus and attachments appear intact. The lateral collateral ligament complex and posterolater al corner structures appear intact. Note is made of an apparent contusion of the lateral aspect of t he lateral gastrocnemius muscle. Patellofemoral joint and extensor mechanism: The articular cartilage of the patellofemoral joint appe ars intact. The superior and inferior patellar fat pads appear normal with no signal abnormality. The quadriceps tendon and patellar tendon appear intact with no evidence of a tear or significant ángel ma. The medial and lateral retinacula appear intact. Cruciate ligaments: Cruciate ligaments and attachments appear normal with no evidence of a tear. Tibiofibular joint: No specific abnormality involving the tibiofibular joint. IMPRESSION: Apparent bony trabecular injury of medial tibial plateau. Contusion of lateral head of the gastrocnemius adjacent to the posterior aspect of the fibula. Medial meniscal attachment tear at the posterior attachment, nondisplaced. DATA REPOSITORY:
== END ==
PROVIDERS: PCP Family Medicine; Visit Provider Student in an Organized Health Care Education/Training Program
DX: S83.8X1A Sprain of other specified parts of right knee, initial encounter; M25.561 Pain in right knee; M25.461 Effusion, right knee; M71.21 Synovial cyst of popliteal space [Baker], right knee; S83.241A Other tear of medial meniscus, current injury, right knee, initial encounter; X58.XXXA Exposure to other specified factors, initial encounter
CPT/HCPCS: 73721

== ENCOUNTER 2022-09-11 08:00 | Day surgery (SDC) | payer BC, SELFPAY ==
[2022-09-11] VITALS (9 sets, daily range): BP systolic 86–126; BP diastolic 43–96; PULSE 56–72; RESP 14–19; TEMP 36.3–37; O2SAT 97–100; BMI 25.0
--- NOTE | 2022-09-11 08:02 | ANES.PREOP_ITS ---
General Info Date of Service Date Performed: 09/11/22 Height: 5 ft 6 in Weight: 70.307 kg Body Mass Index (BMI): 25.0 Surgical Procedure: Operation Date: 09/11/22 09:55 Proposed Procedure Side Surgeon p Knee Arthroscopy w/Medial Meniscus Root Repair and any other indicated meniscal,chondral and synovial surgery Right Jason Rose MD Meds Allergies and Home Medications Allergies Allergy/AdvReac Type Severity Reaction Status Date / Time tramadol AdvReac Intermediate projectile Verified 09/11/22 08:07 vomitting Home Medication Medication Instructions Recorded magnesium oxide 200 mg PO DAILY 05/15/21 riboflavin (vitamin B2) 100 mg 100 mg PO DAILY 05/15/21 tablet rizatriptan 10 mg disintegrating 10 mg PO ONCE PRN 05/15/21 tablet (Maxalt-GRINDING ROOM INSPECTOR) aspirin 81 mg tablet,delayed 81 mg PO DAILY Prevent blood clot 09/11/22 release 14 days #14 tabs naproxen 250 mg tablet 250 - 500 mg PO BID PRN #40 tabs 09/11/22 ondansetron 4 mg disintegrating 4 mg PO Q6H PRN nausea or vomiting 09/11/22 tablet #5 tabs oxycodone 5 mg tablet 5 - 10 mg PO Q4H PRN moderate to 09/11/22 severe pain #18 tabs Current Visit Medications: Current Medications Generic Name Dose Route Start Last Admin Trade Name Freq PRN Reason Stop Dose Admin Ringer's Solution 1,000 mls @ 30 mls/hr 09/11/22 06:00 IV 09/11/22 16:00 INFUSION ALISON Cefazolin Sodium/Dextrose 2 gm in 50 mls @ 100 mls/hr 09/11/22 06:00 Ancef Duplex IVPB 09/11/22 23:59 PREOP ALISON IV Miscellaneous Supplies 1 each 09/11/22 06:00 Iv Access IV 09/11/22 23:59 DIRECTED ALISON Oxycodone HCl 0 mg 09/11/22 07:17 Oxycodone 5 Mg Tab PO Q3H PRN PRN Pain Sodium Chloride 0 ml 09/11/22 06:00 Normal Saline Flush 10 Ml Syr IV 09/11/22 23:59 PRN PRN Sodium Chloride 0 ml 09/11/22 06:00 Normal Saline 10 Ml Vial IJ 09/11/22 23:59 DIRECTED PRN Sterile Water 0 ml 09/11/22 06:00 Water,Injection,Sterile 10 Ml Vial IJ 09/11/22 23:59 DIRECTED PRN PFSH Active Problems Active Problems: Problem Status Onset Code Acute medial meniscus tear of right knee 06/21/22 S83.241A Normal colonoscopy Rosacea L71.9 Bilateral carpal tunnel syndrome G56.03 Adjustment disorder with mixed anxiety and depressed mood F43.23 Palpitations R00.2 Migraines G43.909 Screening for colon cancer Z12.11 Surgical History Surgical History History of colonoscopy (~11/2021) Tobacco Smoking/Tobacco Use Status: Never Alcohol Alcohol Intake: current Alcohol intake frequency: a few times a week Alcohol type: beer and wine Substance Use Substance use: Never Substance use type: does not use Vital Signs and Lab Results Vital Signs Most Recent Vital Signs in EMR: Temp Pulse Resp Pulse Ox 36.4 C L 72 16 99 09/11/22 08:11 09/11/22 08:11 09/11/22 08:11 09/11/22 08:11 Lab Results Blood Type / Crossmatch: No Data to Display Complete Blood Count: No Data to Display Complete Metabolic Panel: No Data to Display Liver Function Panel: No Data to Display Coagulation Panel: No Data to Display Cardiac Panel: No Data to Display Arterial Blood Gas: No Data to Display Venous Blood Gas: No Data to Display Pancreas Panel: No Data to Display Thyroid Panel: No Data to Display Infectious Disease: No Data to Display Blood Cultures: No Data to Display Toxicology Panel: No Data to Display Panel: No Data to Display Anesthesia Assessment and Plan Anesthesia History Personal History: No History of Anesthesia Complications Family History: No Family History of Anesthesia Complications Exercise Tolerance Exercise Tolerance: Metabolic Equivalents>4 Cardiac & Pulmonary Exam Cardiac Exam: Normal S1/S2 Heart Sounds Pulmonary Exam: Clear Bilateral Breath Sounds Implantable Cardiac Device Does patient have a Pacemaker or an ICD?: No Airway Exam Known Difficult Airway: No Mallampati Class: 1 Mouth Opening: Normal (> 3cm) Thyromental Distance: Greater than 3 cm Neck Range of Motion: Full ROM Neck Circumference: Normal Teeth Condition: Normal Dentition ASA Classification ASA Score: ASA 2 Emergency Case?: No NPO Status NPO Status: NPO Clears >2 hours, Solids >8 hours Status Status: Negative HCG Anesthesia Plan Resuscitation Status: Full Code Anesthesia Technique: General Anesthesia Airway Planned: Endotracheal Tube Monitors Used: Standard Monitors Preoperative Comments:: 47 yo female with meniscus tear for knee scope. Sig PMHx: anxiety, migraines, palpitations (anxiety related), never smoker, occ EtOH. Previous Anes: - colo with prop, no issues. - ECTR (bilat), prop/hydro, no issues.
[2022-09-11] MEDS: Lactated Ringers 1,000 ML 30 ML IV (08:49)
[2022-09-11] MEDS: ceFAZolin 2 GM/50 ML BAG IVPB (09:36)
[2022-09-11] MEDS: EPINEPHrine 30 MG/30 ML VIAL (10:42)
[2022-09-11] MEDS: Bupivacaine 0.5% Pres-Free W/EPI 30 ML VIAL (10:42)
[2022-09-11] MEDS: MORPHine 4 MG/ML SYR (10:43)
--- NOTE | 2022-09-11 11:47 | PDOC.DSDIS_ITS ---
Date of service: 09/11/22 Time of Service: 13:00 Discharge Plan Disposition Patient Disposition: Home Discharge Details Attending Provider: Jason Rose Primary Care Provider: Alee Woodruff Home Meds and New Rx's Prescriptions: New aspirin 81 mg tablet,delayed release (DR/EC) 81 mg PO DAILY 14 Days Qty: 14 0RF naproxen 250 mg tablet 250 - 500 mg PO BID PRNQty: 40 0RF Rx Instructions: take with a meal ondansetron 4 mg tablet,disintegrating 4 mg PO Q6H PRN (Reason: nausea or vomiting) Qty: 5 0RF oxycodone 5 mg tablet 5 - 10 mg PO Q4H MDD 30 mg PRN (Reason: moderate to severe pain) Qty: 18 0RF Continued riboflavin (vitamin B2) 100 mg tablet 100 mg PO DAILY magnesium oxide 200 mg magnesium tablet 200 mg PO DAILY rizatriptan [Maxalt-MIXED SIGNAL DESIGN ENGINEER] 10 mg tablet,disintegrating 10 mg PO ONCE PRN Rx Instructions: may repeat once after at least 2 hours Discontinued ibuprofen [Advil] 200 mg Tablet 200 mg PO Q6H PRN Discharge Instructions Additional Instructions: Surgery: Right knee arthroscopy with medial meniscus root repair Activity: Partial weightbearing (less than 50%) with crutches for 6 weeks. Seated/nonweightbearing range of motion 0-90 degrees for 6 weeks. Then maximum flexion 120 degrees until 8 weeks postop and then advance to full flexion. Spin/bike and closed-chain strengthening after 10 weeks. No weighted deep flexion for 12 weeks. Sports around 3-4 months postop. A physical therapy prescription will be sent electronically to start in about 3 weeks. Prescriptions: Aspirin 81 mg take 1 daily to prevent a blood clot for 14 days Naproxen 250 mg take 1-2 every 12 hours with a meal as needed for moderate pain (do not use at the same time as ibuprofen) Oxycodone 5 mg take 1-2 every 4-6 hours as needed for severe pain You may use [id number] Tylenol (acetaminophen) as needed for mild pain. These pain medications may be taken all at once or in different combinations as needed. Ondansetron (Zofran) 4 mg take 1 orally dissolving tablet every 6 hours as needed for nausea or vomiting Also, recommend Colace (docusate) as a stool softener as surgery and pain medicine cause constipation. You may try [id number] diphenhydramine (Benadryl) 25-50 mg nightly as a sleep aid Dressings: Leave dressing in place for 3 days. May then remove and leave open to air or cover incisions with Band-Aids. May shower after 5 days. Follow-up: 10-[address] Rose You may take off the leg compression stockings this evening at home. You may also leave them on a few days longer if you have a history of leg swelling or edema. Let us know right away if you develop any redness, drainage, fevers, chest pain, or trouble breathing. Do not drink alcohol or drive for at least 24 hours after anesthesia. Please call the office during business hours with any questions or concerns. Discharge Orders Discharge Orders: Discharge Order (Routine); Ordered 09/11/22 Ordered By: Jason Rose DS: Diagnosis Discharge Diagnosis (1) Acute medial meniscus tear of right knee: Status: Acute
--- NOTE | 2022-09-11 12:08 | W.ANESPOSTOP ---
Postoperative Evaluation Date, Time and Location Date Performed: 09/11/22 Time Performed: 12:08 Patient Location: PACU Vital Signs Most Recent Imported Vital Signs: Most Recent Vital Signs Temp Pulse Resp BP Pulse Ox 36.6 C 66 17 92/57 L 97 09/11/22 11:57 09/11/22 11:57 09/11/22 11:57 09/11/22 11:57 09/11/22 11:57 Pain Score Most Recent Pain Score: Most Recent Pain Score Pain Level 0 09/11/22 11:57 Assessment Mental Status: Awake (Alert & Oriented to Patient Baseline) Airway and Respiratory Function: Patent airway with normal (patient baseline) respiratory exam Cardiovascular Function: Hemodynamically Stable Hydration Status: Adequately Hydrated Nausea & Vomiting: No Nausea or Vomiting Pain: Pain is tolerable per patient Peripheral Nerve Block: Patient did not receive a nerve block
--- NOTE | 2022-09-11 14:07 | ROE_ITS ---
Date of service: 09/11/22 Time of Service: 10:00 Operative Note Operative Note DATE OF PROCEDURE: 09/11/22 PRE-OP DIAGNOSIS: Right knee 1. Medial meniscus root tear POST-OP DIAGNOSIS: same PROCEDURE: Right knee 1. Medial meniscus root repair, CPT #40363 SURGEON: Jason Rose SURGICAL CORSETIER: Sonya Quezada ANESTHESIA TYPE: Local By Surgeon and General LMA/ETT Refer to Anesthesia Record ESTIMATED BLOOD LOSS: 10 PATHOLOGY: none sent TOURNIQUET TIME: 0 Patient was transported to: PACU Patient's condition: stable Indications: Please see complete medical record for details. Findings: Exam under anesthesia: Full range of motion, no instability Arthroscopic findings: Complete posterior horn radial meniscus root tear adjacent to the root. No other medial meniscus tear. Moderately diffuse posterior medial femoral condyle mild to moderate chondromalacia. Focal distal weightbearing small moderate grade chondromalacia medial femoral condyle. Moderately sized medial gutter plica. Mild suprapatellar and intercondylar synovitis. Intact lateral compartment cartilage and meniscus. Intact ACL. Procedure Description: In the operating room, general anesthesia was induced. The patient was positioned supine on the operating room table. All bony prominences were well- padded. Preoperative antibiotics were administered. The knee was prepped and draped in the usual sterile fashion. The correct patient, procedure, and side of the procedure were all verified prior to incision. Exam under anesthesia was performed. 10 cc of 0.25% bupivacaine containing epinephrine was infiltrated about the planned anteromedial and anterolateral knee arthroscopy portals as well as the planned pretibial incision. The portals were established and a complete diagnostic arthroscopy was performed with relevant findings detailed above. There was an incidental medial gutter plica that was resected to a stable synovial margin. The meniscus tear was inspected. It was essentially a complete root?equivalent radial posterior horn tear and demonstrated displacement hypermobility from the typical root attachment as well as into the compartment. An 8x2 millimeter passport was inserted in the anterior medial portal. The tear site was debrided of mild inflamed and frayed tissue with the mechanical shaver to a stable margin. The root repair guide was brought in with the hook placed appropriately over the posterior margin and the targeter aimed just beneath the meniscus tear in order to achieve best repair anatomy. A small pretibial incision was made and the drill guide placed down to bone. The flip cutter was then used and exited into the joint at the appropriate location. The guide was removed and the flip cutter deployed to 6 mm and used to decorticate and create about a 5 mm socket beneath the edge of the tear. A 2-0 fiber stick was placed up the tibial tunnel and left just below the meniscus for repair later suture shuttling. The knee scorpion was then used to place two 0.9 mm suture tape FiberLink's in cinch mode at the free edge of the tear and more medial with excellent tissue purchase. These repair sutures were shuttled out the tibia and then tied over a 3.5mm suture botton. The repair was inspected, but had slightly too much laxity so the decision was made to add suture anchor backup fixation. The incision was extended slightly distally. The anteromedial tibial cortex was exposed. The 2.5 mm drill was used to open the cortex followed by the undersized punch, standard punch, and SwiveLock tap. The repair sutures were loaded through the eyelet of a 4.75 mm SwiveLock, which was deplo yed with appropriate tension on the repair and excellent bone fixation. Care was taken to ensure the suture anchor was flush to just slightly countersunk with the tibial cortex. The repair was inspected and had excellent reduction and stability. Safety sutures were removed and repair sutures cut short. A minimal amount of chondral fraying and fibrillations were smoothed using mechanical shaver as well resecting as a small amount of patellofemoral synovitis. Under direct arthroscopic visualization an 18-gauge needle was passed into the knee from superolateral into the suprapatellar pouch. The knee was copiously irrigated with arthroscopic fluid until there was a clear effluent before being drained of all fluid. The pretibial incision subcutaneous tissue was closed using 2-0 Monocryl buried erupted followed by 3-0 Monocryl for the skin. The anteromedial and anterolateral portals were closed in 3-0 Monocryl in a buried interrupted fashion. 20 cc of 0.25% bupivacaine with epinephrine containing 4 mg of morphine was infiltrated into the knee through the previously placed needle. Mastisol, Steri-Strips, and 4 x 4 gauze were applied over the incisions followed by sterile soft roll. The knee was then wrapped gently with an PERCY comressive bandage. The patient awoke from anesthesia without complication and was transferred to the recovery room in a stable condition.
== END 2022-09-11 14:25 | disposition home or self-care (01) ==
PROVIDERS: PCP Family Medicine; Visit Provider Student in an Organized Health Care Education/Training Program
PROC: (CPT 29870; principal; 2022-09-11 09:45)
DX: S83.241A Other tear of medial meniscus, current injury, right knee, initial encounter (principal); X58.XXXA Exposure to other specified factors, initial encounter
CPT/HCPCS: 29882; 81025; J0131; J0690; J1100; J1885; J2270; J2405; J2704; J3475

== ENCOUNTER → 2023-05-24 03:14 | Outpatient (CLI) | payer BC, SELFPAY ==
--- NOTE | 2023-05-24 | DI.MAMMO_ITS ---
Exam(s) MAMMO SCREENING EXAM: MAMMO SCREENING CLINICAL HISTORY: SCREENING, Z12.39 TECHNIQUE: Mammograms were interpreted according to the usual protocol including computer analysis w Tasspass CAD system, tomosynthesis and C-view imaging. COMPARISON: 2015 through 2021 FINDINGS: The breasts are composed of heterogeneously dense fibroglandular densities, Breast Density category C . No suspicious masses or suspicious microcalcifications are seen. No skin thickening or abnormal axillary lymph nodes are seen. There has been no significant change from prior exams. IMPRESSION: BI-RADS Category 1, Negative mammogram. Yearly screening mammography is recommended. Breast Density Category C, heterogeneously Dense. The mammogram demonstrates the patient's breast tissue is dense. Dense breast tissue is very common a nd is not abnormal but dense breast tissue can make it harder to find cancer on a mammogram. Also, de nse breast tissue may increase breast cancer risk. This information about the result of the mammogram report was provided to the patient to raise their awareness. Use this report when you speak with the patient about their risks for breast cancer, which includes their family history. At that time, you may recommend additional screening tests (Ultrasound or MRI) as they might be useful based on their r isk. A negative radiographic report should not delay biopsy if a dominant or clinically suspicious mass is present. Up to ten percent of cancers are not identified on mammography. A negative report may reinforce clinical impression. Adenosis and dense breasts may obscure an underlying neoplasm. False positive reports average 6 to 10%.
== END ==
PROVIDERS: PCP Family Medicine; Visit Provider Nurse Practitioner Family
DX: Z12.31 Encounter for screening mammogram for malignant neoplasm of breast (principal)
CPT/HCPCS: 77063; 77067

== ENCOUNTER 2024-05-17 16:07 | Outpatient (REF) | payer BC, SELFPAY ==
--- OUTSIDE RECORDS SUMMARY | 2024-05-17 16:09 | XMS_ITS | Clinical Summary ---
Author Organization [facility] Address [address] [place] [address] Care Team Providers Care Physiological Chemist Name Role Phone Unknown, Provider Primary Care Provider Social History Tobacco Use Types Packs/Day Years Used Date Smoking Tobacco: Never Assessed Sex and Gender Information Value Date Recorded Sex Assigned at Not on file Gender Identity Not on file Sexual Orientation Not on file Plan of Treatment Health Maintenance Due Date Last Done Comments Hepatitis C Screen 1975 Hepatitis B Vaccine (1 of 3 - 19+ 3-dose series) 06/22 COVID-19 Vaccine (2022-24 season) 2023 Care Teams Physiological Chemist Relationship Specialty Start Date End Date Unknown, Provider, PCP - General 06/27/15
--- OUTSIDE RECORDS SUMMARY | 2024-05-17 16:09 | XMS_ITS | Referral Summary ---
Author Organization [facility] Address [address] [place] [address] Care Team Providers Care Auto Parts Handler Name Role Phone Unknown, Provider Primary Care Provider [phone] Social History Tobacco Use Types Packs/Day Years Used Date Smoking Tobacco: Never Assessed Sex and Gender Information Value Date Recorded Sex Assigned at Not on file Gender Identity Not on file Sexual Orientation Not on file Plan of Treatment Not on file Care Teams Auto Parts Handler Relationship Specialty Start Date End Date Unknown, Provider, PCP - General 06/27/15
--- OUTSIDE RECORDS SUMMARY | 2024-05-17 16:10 | XMS_ITS | Encounter Summary ---
Author Organization [facility] [place] [address] Care Team Providers Care Sas Developer Name Role Phone Kate Benitez CATIA Primary Care Provider [phone] Reason for Visit * Auth/Cert Specialty Diagnoses / Procedures Referred By Toya ortiz Referred To Contact Diagnoses Bilateral Carpal Tunnel Syndrome Procedures PRO WRIST ARTHROSCOP, RELEASE XVERS LIG ENDOSCOPY WRIST W/ RELEASE TRANSVERSE CARPAL LIGAMENT Referral ID Status Reason Start Date Expiration Date Visits Re quested Visits Authorized [id number] 1 1 Encounter Details Date Type Department Care Team (Latest Contact Info) Description 07/31/2016 9:44 AM EST - 07/31/2016 12:34 PM [facility] Hospital Encounter [place] [address] Dion Evangelista MD [facility] [address] [facility] [address] Carpal tunnel syndrome, bilateral Discharge Disposition: Home Social History Tobacco Use Types Packs/Day Years Used Date Smoking Tobacco: Never Smokeless Tobacco: Never Alcohol Use Standard Drinks/Week Comments Yes 0 (1 standard drink = 0.6 oz pur e alcohol) 5 drinks weekly Sex and Gender Information Value Date Recorded Sex Assigned at Not on file Gender Identity Not on file Sexual Orientation Not on file documented as of this encounter Last Filed Vital Signs Vital Sign Reading Time Taken Comments Blood Pressure 105/55 07/31/2016 11:22 AM EST Pulse 71 07/31/2016 11:22 AM EST Temperature 36.1 ??C (97 ??F) 07/31/2016 11:22 AM EST Respiratory Rate 16 07/31/2016 11:22 AM EST Oxygen Saturation 99% 07/31/2016 11:22 AM EST Inhaled Oxygen Concentration - - Weight 68 kg (150 lb) 07/31/2016 10:18 AM EST Height 165.1 cm (5' 5) 07/31/2016 10:18 AM EST Body Mass Index 24.96 07/31/2016 10:18 AM EST documented in this encounter Discharge Instructions * Discharge Instructions* Friend, Thea Castillo RN - 07/31/2016 10:42 AM EST General Anesthesia Discharge Instructions Go home and rest. You may be sleepy for several hours. Take it easy as sudden position changes may cause nausea and/or dizziness. Use caution on stairs. Follow a light to regular diet as tolerated today. If nausea occurs, start with clear liquids, and progress slowly to a regular diet. Do not drive, operate machinery, drink alcoholic beverages or make any legal decisions after havinggeneral anesthesia. The medications given change your reaction time and alter your judgement. IV site -- slight redness is normal, you can use warm compresses. If tenderness and redness increases or foul drainage occurs, please contact your M.D. Patients who have had endotracheal tubes/LMA (tubes used by the anesthesia staff to ensure a safe airway during your operation) may have a sore throat. This is normal and cold liquids or soothing lozengers will help ease this discomfort. Narcotic pain medications can cause constipation, please ask the surgeons office what they recommend for prevention of this. Some non-pharmaceutical means of constipation prevention include increasing intake of fluids, eating more fruits and vegetables as well as fruit juices. If you are uncomfortable and/or unable to urinate within 8 hours of discharge and it is before 5 pm, call your physician. If it is after 5pm go to the closest emergency room or call the hospital acid retort operator at [phone] and ask for physician front desk representative covering for your physician. Questions or problems after 5pm or on a weekend: Call the [facility] acid retort operator at and ask for the physician front desk representative covering for your doctor. documented in this encounter Medications at Time of Discharge Medication Sig Dispensed Refills Start Date End Date traMADol (ULTRAM) 50 mg Tablet Take 1-2 tablets by mouth every 6 hours as needed for Pain. 10 tablet 07/31/2016 08/12/2016 documented as of this encounter Progress Notes * Loni Raman RN - 07/31/2016 12:16 PM EST Discharge instructions and medications reviewed with patient and Robert. All questions answered and written copy sent home with patient. documented in this encounter H&P Notes * Dion Evangelista MD - 07/31/2016 10:29 AM EST Patient Name: Patricia Andrew Patient Age: 41 y.o. Birthdate: 1975 Admit date: 07/31/2016 Attending Physician: Dion Evangelista MD I interviewed and examined Patricia Andrew. There have been no apparent interval changes in her health status since the most recent history and physical was done. She presents today for right and possible left carpal tunnel releases. DION EVANGELISTA MD * Dion Evangelista MD - 07/30/2016 4:21 PM EST Patient Name: Patricia Andrew Patient Age: 41 y.o. Birthdate: 1975 Admit date: (Not on file) Attending Physician: Dion Evangelista MD See scanned document for pre-procedural H&P completed on 07/24/16. documented in this encounter Miscellaneous Notes * Op Note - Dion Evangelista MD - 07/31/2016 11:29 AM EST [facility] [place] Patient Name: Patricia Andrew : [id number] MR#: [id number] Case Date: 07/31/2016 Surgeon: Surgeon(s) and Role: * Dion Evangelista MD - Primary * Susan Vick PA - Physician Radio Adjuster PREOPERATIVE DIAGNOSIS: Bilateral carpal tunnel syndrome. POSTOPERATIVE DIAGNOSIS: Bilateral carpal tunnel syndrome. PROCEDURE PERFORMED: Endoscopic Bilateral carpal tunnel decompressions ANESTHESIA: Local with sedation. OPERATIVE INDICATION: The patient is a 41 y.o.-year-old Female with EMG proven bilateral carpal syndrome. They were refractory to conservative treatment. She was brought to the operating room for endoscopic bilateral carpal tunnel decompressions. This procedure was done with a physician's assistantbecause no resident was available to assist. SUMMARY OF PROCEDURE: After 2 gm of intravenous cefazolin was administered, the patient's bilateralupper extremities were prepped with Hibiclens scrubs and ChloraPreps. Her bilateral arms were draped in sterile fashions. A preoperative time-out was performed as per [facility] [place]. 7mL of 1% lidocaine with epinephrine buffered with sodium bicarbonate was injected over the median nerve at the levelof each wrist as well as over the palmar side of the her bilateral hands. Right carpal tunnel decompression was done first. Her right arm was then exsanguinated with an Esmarch bandage. A brachial tourniquet was inflated to 250 mmHg. A transverse incision was made at the palmar wrist crease in line with the ring finger ray. Subcutaneous spreading was performed in a blunt fashion down to the level of the investing fascia of the palmar surface of the forearm. Throughout this dissection, care was taken to avoid injury to subcutaneous neurovascular structures. The investing fascia was incised. It was elevated as a distally based flap which allowed for entry into the carpal tunnel. A synovial elevator was then used to dissect synovium from the undersurface of the transverse carpal ligament. Small and large hamate finders were inserted into the carpal tunnel to confirm the proper level of entry. The Sherrie endoscopic carpal tunnel release device was inserted into the carpal tunnel. It was passed distally until the distal edge of the transverse carpal ligament was well visualized. The blade was elevated. The device was withdrawn, transecting the transverse carpal ligament. The device was reinserted and complete release of the transverse carpal ligament was confirmed. Under direct vision, the investing fascia at of the palmar surface of forearm was released well proximal to the wrist incision site using tenotomy scissors. The incision was irrigated and was closed with 4-0 nylon suture. A sterile soft dressing was applied to her right hand and wrist. The tourniquet was released with atotal tourniquet time of 4 minutes. All digits rapidly became pink and warm with brisk capillary refill. Left carpal tunnel release was done next. Her left arm was then exsanguinated with an Esmarch bandage. A brachial tourniquet was inflated to 250 mmHg. A transverse incision was made at the palmar wrist crease in line with the ring finger ray. Subcutaneous spreading was performed in a blunt fashion down to the level of the investing fascia of the palmar surface of the forearm. Throughout this dissection, care was taken to avoid injury to subcutaneous neurovascular structures. The investing fascia was incised. It was elevated as a distally based flap which allowed for entry into the carpal tunnel. A synovial elevator was then used to dissect synovium from the undersurface of the transverse carpal ligament. Small and large hamate finders were inserted into the carpal tunnel to confirm the proper level of entry. The Sherrie endoscopic carpal tunnel release device was inserted into the carpal tunnel. It was passed distally until the distal edge of the transverse carpal ligament was well visualized. The blade was elevated. The device was withdrawn, transecting the transverse carpal ligament. The device was reinserted and complete release of the transverse carpal ligament was confirmed. Under direct vision, the investing fascia at of the palmar surface of forearm was released well proximal to the wrist incision site using tenotomy scissors. The incision was irrigated and was closed with 4-0 nylon suture. A sterile soft dressing was applied. The tourniquet was released with a total tourniquet time of 4 minutes. All digits rapidly became pink and warm with brisk capillary refill. She was then transferred to the recovery room in stable condition. Estimated blood loss was minimal. IV fluid replacement was 200 mL of crystalloid. She tolerated the procedure well without apparent complications. Attestation: Case Date: 07/31/2016 I performed this procedure without the involvement of a resident. DION EVANGELISTA MD 07/31/2016 * Brief Op Note - Dion Evangelista MD - 07/31/2016 11:29 AM EST Brief Operative Note Patient Name: Patricia Andrew : [id number] MR#: [id number] Case Date: 07/31/2016 Surgeon: Surgeon(s) and Role: * Dion Evangelista MD - Primary * Susan Vick PA - Physician Radio Adjuster Preoperative diagnosis: Bilateral Carpal Tunnel Syndrome Postoperative diagnosis: Bilateral carpal tunnel Syndrome Procedure(s): ENDOSCOPY WRIST W/ RELEASE TRANSVERSE CARPAL LIGAMENT-CAM Anesthesia: MAC Complications: None Fluids: 200cc crystalloid Estimated Blood Loss: * No values recorded between 07/31/2016 11:05 AM and 07/31/2016 11:18 AM * Drains: None Disposition: aroused from sedation, and taken to the recovery room in a stable condition Condition: doing well without problems Attestation: Case Date: 07/31/2016 I was present and I participated during the entire procedure. This procedure was done without a resident. (Please see the Surgical Encounter Summary for any Implant and Specimen details pertinent to this patient.) documented in this encounter Plan of Treatment Not on file documented as of this encounter Procedures Procedure Name Priority Date/Time Associated Diagnosis Comments ENDOSCOPY WRIST W/ RELEASE TRANSVERSE CARPAL LIGAMENT-CAM (WRVU 6.39) 07/31/2016 10:48 AM EST Carpal tunnel syndrome, bilateral ENDOSCOPY,WRIST,W\RELEA SE TRANSVERS CARPAL LIGAMENT,BILATERAL Routine 07/31/2016 10:06 AM EST Carpal tunnel syndrome, bilateral documented in this encounter Visit Diagnoses Diagnosis Carpal tunnel syndrome, bilateral Carpal tunnel syndrome documented in this encounter Administered Medications Inactive Administered Medications - up to 3 most recent administrations Medication Order MAR Action Action Date Dose Rate Site fentaNYL (PF) 50 mcg/mL 2mL syringe 25 mcg, Intravenous, EVERY 5 MIN PRN, Pain, for 1-4 pain score, Starting on Wed07/31/16 at 1124, Until Wed07/31/16 at 1437, for 1-4 pain score Hold for respiratory rate less than 10 per minute. Maximum dose: 250 mcg over one hour., PACU Recovery fentaNYL (PF) 50 mcg/mL 2mL syringe 50 mcg, Intravenous, EVERY 5 MIN PRN, Pain, for 5-10 pain score, Starting on Wed07/31/16 at 1124, Until Wed07/31/16 at 1437, for 5-10 pain score Hold for respiratory rate less than 10 per minute. Maximum dose: 250 mcg over one hour., PACU Recovery lactated ringers infusion 1,000 mL 1,000 mL, at 100 mL/hr, Intravenous, CONTINUOUS, Starting on Wed07/31/16 at 1030, Until Wed07/31/16 at 1437, Day of Surgery (Day of Procedure) New Bag 07/31/2016 10:41 AM EST 1,000 mLs 100 mL/hr lidocaine (XYLOCAINE) 10 mg/mL (1 %) injection 3 mg 3 mg (0.3 mL), Subcutaneous, ONCE PRN, 1 dose, Starting on Wed07/31/16 at 1008, Until Wed07/31/16 at 1437, for discomfort with PIV insertion, Day of Surgery (Day of Procedure), Routine sodium chloride 0.9 % flush 5-20 mL 5-20 mL, Intravenous, EVERY 1 MIN PRN, Starting on Wed07/31/16 at 1008, Until Wed07/31/16 at 1437, flush, Flush pertains to all indwelling lines. Flush per protocol found in the job aid using the link provided on this medication record., Day of Surgery (Day of Procedure), Routine traMADol (ULTRAM) tablet 50 mg 50 mg, Oral, EVERY 6 HOURS PRN, Starting on Wed07/31/16 at 1037, Until Wed07/31/16 at 1437, Pain, Routine documented in this encounter Active and Recently Administered Medications Times are shown in EST. Continuous Medication Order 07/29/2016 07/30/2016 07/31/2016 lactated ringers infusion 1,000 mL 1,000 mL, at 100 mL/hr, Intravenous, CONTINUOUS, Starting on Wed07/31/16 at 1030, Until Wed07/31/16 at 1437, Day of Surgery (Day of Procedure) 1041 (New Bag - Prov ider: Thea Luevano RN)1122 (Stopped - Provider: Yenny Hallman CRNA) PRN Medication Order 07/29/2016 07/30/2016 07/31/2016 fentaNYL (PF) 50 mcg/mL 2mL syringe(Linked Group 1) 25 mcg, Intravenous, EVERY 5 MIN PRN, Pain, for 1-4 pain score, Starting on Wed07/31/16 at 1124, Until Wed07/31/16 at 1437, for 1-4 pain score Hold for respiratory rate less than 10 per minute. Maximum dose: 250 mcg over one hour., PACU Recovery fentaNYL (PF) 50 mcg/mL 2mL syringe(Linked Group 1) 50 mcg, Intravenous, EVERY 5 MIN PRN, Pain, for 5-10 pain score, Starting on Wed07/31/16 at 1124, Until Wed07/31/16 at 1437, for 5-10 pain score Hold for respiratory rate less than 10 per minute. Maximum dose: 250 mcg over one hour., PACU Recovery lidocaine (XYLOCAINE) 10 mg/mL (1 %) injection 3 mg 3 mg (0.3 mL), Subcutaneous, ONCE PRN, 1 dose, Starting on Wed07/31/16 at 1008, Until Wed07/31/16 at 1437, for discomfort with PIV insertion, Day of Surgery (Day of Procedure), Routine lidocaine-EPINEPHrine 1 %-1:100,000 injection (CANCELED) ONCE PRN, Starting on Wed07/31/16 at 1105, Until Wed07/31/16 at 1437, Intra-Operative (Intra-Procedure), Routine 1105 (Given - Provid er: Dion Evangelista MD - Comment: 7 cc in Right wrist, 7 cc in Left wrist) ondansetron (ZOFRAN) injection 4 mg 4 mg, Intravenous, EVERY 30 MIN PRN, Starting on Wed07/31/16 at 1123, Until Wed07/31/16 at 1437, Nausea, May repeat 4 mg once in 30 minutes. If multiple antiemetics ordered, use ondansetron first and if ineffective use prochlorperazine second and if ineffective use promethazine, PACU Recovery sodium chloride 0.9 % flush 5-20 mL 5-20 mL, Intravenous, EVERY 1 MIN PRN, Starting on Wed07/31/16 at 1008, Until Wed07/31/16 at 1437, flush, Flush pertains to all indwelling lines. Flush per protocol found in the job aid using the link provided on this medication record., Day of Surgery (Day of Procedure), Routine traMADol (ULTRAM) tablet 50 mg 50 mg, Oral, EVERY 6 HOURS PRN, Starting on Wed07/31/16 at 1037, Until Wed07/31/16 at 1437, Pain, Routine No Frequency Medication Order 07/29/2016 07/30/2016 07/31/2016 ceFAZolin (ANCEF) 2 gram/50 mL infusion (COMPLETED) 1 dose, Starting on Wed07/31/16 at 1034, Until Wed07/31/16 at 1052, MARINA DAVIS: cabinet override 1052 (Given - Provid er: Anthony Mix MD) Linked Groups Order Group 1: fentaNYL (PF) 50 mcg/mL 2mL syringeJump to med 25 mcg, Intravenous, EVERY 5 MIN PRN, Pain, for 1-4 pain score, Starting on Wed07/31/16 at 1124, Until Wed07/31/16 at 1437, for 1-4 pain score Hold for respiratory rate less than 10 per minute. Maximum dose: 250 mcg over one hour., PACU Recovery Or fentaNYL (PF) 50 mcg/mL 2mL syringeJump to med 50 mcg, Intravenous, EVERY 5 MIN PRN, Pain, for 5-10 pain score, Starting on Wed07/31/16 at 1124, Until Wed07/31/16 at 1437, for 5-10 pain score Hold for respiratory rate less than 10 per minute. Maximum dose: 250 mcg over one hour., PACU Recovery documented in this encounter Care Teams Sas Developer Relationship Specialty Start Date End Date Kate Benitez APRN PCP - General 04/30/15 03/22/19 documented as of this encounter
--- OUTSIDE RECORDS SUMMARY | 2024-05-17 16:10 | XMS_ITS | Encounter Summary ---
Author Organization [facility] [place] [address] Care Team Providers Care Cardiac Surgeon Name Role Phone Kate Benitez CATIA Primary Care Provider [phone] Reason for Visit * Reason Comments Follow Up Surgery sp bilat ctr dos 07/31/16 Encounter Details Date Type Department Care Team (Late st Contact Info) Description 08/12/2016 3:50 PM EST Office [place] [id number] Duncan Evangelista MD [facility] DR [place] [address] Carpal tunnel syndrome, bilateral Social History Tobacco Use Types Packs/Day Years [...] Sign Reading Time Taken Comments Blood Pressure 106/77 08/12/2016 3:58 PM EST Pulse 80 08/12/2016 3:58 PM EST Temperature - - Respiratory Rate - - Oxygen Saturation - - Inhaled Oxygen Concentration - - Weight 68 kg (150 lb) 08/12/2016 3:58 PM EST sta lorenzo Height 165.1 cm (5' 5) 08/12/2016 3:58 PM EST s tated Body Mass Index 24.96 08/12/2016 3:58 PM EST documented in this encounter Progress Notes * Susan Vick PA - 08/12/2016 3:50 PM EST This 41-year-old female comes in today status post bilateral endoscopic carpal tunnel release 07/31/16, Dr. Evangelista. She is doing well. She notes improvement of her symptoms from preoperatively. She has not had any pain. She has no questions or concerns today. Examination shows that both incisions are well healed without evidence of infection, no swelling, no skin discoloration. She has full range of motion of all fingers. IMPRESSION: Bilateral endoscopic carpal tunnel release 07/31/16. TREATMENT: Sutures were removed. Steri-strips applied. She may now get her hands wet. She can gradually increase use of her hands as she feels comfortable. I anticipate she will do well and will follow up here on a p.r.n. basis. documented in this encounter Plan of Treatment Not on file documented as of this encounter Visit Diagnoses Diagnosis Carpal tunnel syndrome, bilateral Carpal tunnel syndrome documented in this encounter Care Teams Cardiac Surgeon Relationship Specialty Start Date End Date Kate Benitez APRN PCP - General 04/30/15 03/22/19 documented as of this encounter
--- OUTSIDE RECORDS SUMMARY | 2024-05-17 16:10 | XMS_ITS | Encounter Summary ---
Author Organization [facility] Address [address] [place] [address] Care Team Providers Care Health Care Coach Name Role Phone Unavailable Primary Care Provider Unavailabl e Encounter Details Date Type Department Care Team (Late st Contact Info) Description 08/02/2007 Results Only [facility] - [place] conversion [address] [place] [address] Eloisa Bella, LISHA [address] [place] [address] Social History Tobacco Use Types Packs/Day Years Used Date Smoking Tobacco: Never Assessed Sex and Gender Information Value Date Recorded Sex Assigned at Not on file Gender Identity Not on file Sexual Orientation Not on file documented as of this encounter Plan of Treatment Not on file documented as of this encounter Procedures Procedure Name Priority Date/Time Associated Diagnosis Comments CYTOPATHOLOGY Routine 08/02/2007 0:00 EST documented in this encounter Results * CYTOPATHOLOGY (08/02/2007 0:00 EST) Pathology Report: CYTOPATHOLOGY REPORT Reports generated via electronic interface contain original data; however they are lacking the format of the original report. Caution should be taken when reading/interpreti ng unformatted reports. Name: ? PATRICIA ANDREW ? Accession #: ? [id number] : ? 1975 (Age: 32) ??F ?Collect Date: ? 08/02/2007 Location: ? [facility] ? Receive Date: ? 08/04/2007 Provider: ?ELOISA BELLA MILK WAGON DRIVER Copy to: ? Specimen/Source: ?ThinPrep Pap Test, Cervix/Endocervix, processed on [employer] ThinPrep Imaging System, with manual evaluation Last Menstrual Period: ? 07/17/07 Other: ? HPVA - HPV testing requested if ASC-US on the current ThinPrep Pap test. ? SPECIMEN ADEQUACY ? Satisfactory for Evaluation - transformation zone component present GENERAL CATEGORIZATION ? Negative for Intraepithelial Lesion or Malignancy ? Document reviewed and electronically signed by: ? ZARIA Keane(ASCP) ? Report Date: ??08/05/2007 15:30 End of Report [facility] 08/02/2007 08/04/2007 Eloisa Bella NP PATHOLOGY ORDERABLES [facility] [address] [place] [address] documented in this encounter Visit Diagnoses Not on filedocumented in this encounter
--- OUTSIDE RECORDS SUMMARY | 2024-05-17 16:10 | XMS_ITS | Encounter Summary ---
Author Organization [facility] [place] [address] Care Team Providers Care Healthcare Administration Intern Name Role Phone EmmanuelKate Jaun BARDALES Primary Care Provider [phone] Reason for Visit * Reason Onset Date Comments Pre Procedure Call 06/01/2016 Encounter Details Date Type Department Care Team (Late st Contact Info) Description 06/01/2016 Telephone [place] [phone] Duncan Evangelista MD [facility] [place] [address] Pre Procedure Call Social History Tobacco Use Types Packs/Day Years Used Date Smoking Tobacco: Never Smokeless Tobacco: Never Alcohol Use Standard Drinks/Week Comments Yes 0 (1 standard drink = 0.6 oz pur e alcohol) 5 drinks weekly Sex and Gender Information Value Date Recorded Sex Assigned at Not on file Gender Identity Not on file Sexual Orientation Not on file documented as of this encounter Miscellaneous Notes * Telephone Encounter - Anuradha Mercado - 06/08/2016 9:05 AM EDT Patient returned our call. She needs to move up her surgical date as she has to go out of town for a on her current surgical date of 07/03/16. Moved patient up to 06/19/16 per her request. * Telephone Encounter - Caron Hardy - 06/01/2016 10:36 AM EDT Patient had left a message regarding some questions that she had with her upcoming surgery with . I have left a message to reach her. We will await her call back. documented in this encounter Plan of Treatment Not on file documented as of this encounter Visit Diagnoses Not on filedocumented in this encounter Care Teams Healthcare Administration Intern Relationship Specialty Start Date End Date Kate Benitez APRN PCP - General 04/30/15 03/22/19 documented as of this encounter
--- OUTSIDE RECORDS SUMMARY | 2024-05-17 16:10 | XMS_ITS | Encounter Summary ---
Author Organization [facility] Address [address] [place] [address] Care Team Providers Care Email Marketing Assistant Name Role Phone Unknown, Provider Primary Care Provider Encounter Details Date Type Department Care Team (Late st Contact Info) Description 03/14/2018 Results Only [facility]- [facility] [phone] Kate Bartholomew APRN [address] [facility] [address] [place] [address] Social History Tobacco Use Types Packs/Day Years Used Date Smoking Tobacco: Never Assessed Sex and Gender Information Value Date Recorded Sex Assigned at Not on file Gender Identity Not on file Sexual Orientation Not on file documented as of this encounter Plan of Treatment Not on file documented as of this encounter Procedures Procedure Name Priority Date/Time Associated Diagnosis Comments PAP TEST- RESULT ONLY Routine 03/14/2018 0:00 EDT documented in this encounter Results * PAP TEST- RESULT ONLY (03/14/2018 0:00 EDT) Pathology Report: CYTOPATHOLOGY REPORT Reports generated via electronic interface contain original data; however they are lacking the format of the original report. Caution should be taken when reading/interpreti ng unformatted reports. Name: ? PATRICIA ANDREW ? Accession #: ? [id number] ? : ? 1975 (Age: 42) ??F ?Collect Date: ? 03/14/2018 ? Location: ? [facility] ? Receive Date: ? 03/16/2018 ? Provider: KATE BARTHOLOMEW APRN Copy to: ? Final Report SPECIMEN ADEQUACY ? Satisfactory for Evaluation - transformation zone component present GENERAL CATEGORIZATION ? Negative for Intraepithelial Lesion or Malignancy ?? Other: Additional clinical information: Z00.00 Z11.51 Z12.4 Specimen/Source: ??Pap Test, Cervix, ThinPrep Imaging System with manual evaluation Document reviewed and electronically signed by: ? Cecile Villa, [place](ASCP) ? Report ??Date: 03/25/2018 09:14 HPV with Pap Test ? Date Ordered: ? 03/25/2018 ? Status: ?? Signed Out ?Date Complete: ? 03/28/2018 ? By: ??System Interface ? Date Reported: ? 03/28/2018 ? Interpretation RESULT: POSITIVE FOR HIGH OR INTERMEDIATE RISK HPV. E6 OR E7 mRNA from one or more types of HPV types 16,18,31, 33,35,39,45,51,52, 56,58,59,66, and 68 is detected by hand model mediated amplification. High and intermediate risk HPV types are associated with most squamous intraepithelial lesions and cervical cancers. Comments Document reviewed and electronically signed by: ? System Interface ? Report date: 03/28/2018 By the signature above, the attending physician certifies that he/she has personally conducted a gross and/or microscopic examination of the described specimens and rendered or confirmed the above diagnosis. End of Report [facility] 03/14/2018 03/16/2018 Kate Bartholomew SHELVING SUPERVISOR PATHOLOGY ORDERABLES [facility] [address] [place] [address] documented in this encounter Visit Diagnoses Not on filedocumented in this encounter Care Teams Email Marketing Assistant Relationship Specialty Start Date End Date Unknown, Provider, PCP - General 06/27/15 documented as of this encounter
--- OUTSIDE RECORDS SUMMARY | 2024-05-17 16:10 | XMS_ITS | Encounter Summary ---
Author Organization [facility] Address [facility] [place] [address] Care Team Providers Care Rougher Machine Operator Name Role Phone Kate Benitez APRN Primary Care Provider [phone] Reason for Visit * Reason Comments Skin Check Encounter Details Date Type Department Care Team (Late st Contact Info) Description 09/06/2017 7:15 AM EST Office Visit Dermatology at [address] [phone] Amira Hitchcock MD [facility] [address] LATIA [place] [address] Multiple benign nevi; Blue nevus; Maynard angioma Social History Tobacco Use Types Packs/Day Years Used Date Smoking Tobacco: Never Smokeless Tobacco: Never Alcohol Use Standard Drinks/Week Comments Yes 0 (1 standard drink = 0.6 oz pur e alcohol) 5 drinks weekly Sex and Gender Information Value Date Recorded Sex Assigned at Not on file Gender Identity Not on file Sexual Orientation Not on file documented as of this encounter Progress Notes * Amira Hitchcock MD - 09/06/2017 7:15 AM EST DERMATOLOGY ESTABLISHED PATIENT CLINIC NOTE Date of service: 09/06/2017 Patricia Andrew : 1975 Provider: Amira Hitchcock MD Chief Complaint Patient presents with ??? Skin Check SKIN HISTORY: Angiofibroma Blue Nevus seborrheic Keratosis PATIENT PREFERENCES Preferred name: Patricia Preferred contact method with results: Cell Phone Detailed message including biopsy results okay?: Yes Are there any other people with whom we may discuss your care?: No HPI Patricia Andrew is a 42 y.o. year old female. Established patient to Dermatoloty, new patient to me. Last seen by Dr. Pandey on 05/11/16. Patient presents to the clinic today for a full skin examination. She denies any significant changes in her health since her last visit. She would like the dark spot on her left forehead re-checked. Dx as blue nevus at last visit. Patient denies noticing any changes in size, shape, or color. ADR: Allergies Allergen Reactions ??? Tramadol Nausea And Vomiting MEDS: No current outpatient prescriptions on file. No current facility-administered medications for this visit. ROS General: feeling well Skin: denies other skin complaints EXAM General: NAD, pleasant, cooperative Skin: Patient was asked to disrobe to the level of their comfort. A total body skin exam was performed. This includes examination of the skin of the face, ears, neck, chest, axillae, left and right upper and lower extremities, hands, feet, abdomen, and back. Genitalia, buttocks and breasts were also examined with patient consent. Significant findings: Significant skin findings: A. Left forehead: 3 x 2 mm brown-whitt macule B. Multiple, 0.3-0.5cm, medium-brown, evenly-pigmented macules and papules. All with regular pigment pattern on dermoscopy. No pigmented lesions suspicious for melanoma. C. Multiple 0.2-0.4cm bright red, well-demarcated papules ASSESSMENT/PLAN: A. Blue Nevus - Stable. Discussed benign nature of lesion and provided reassurance. No treatment necessary at this time. B. Benign appearing nevi with even pigmentation and well defined margins are noted. - Reassurance provided. - Discussed warning signs for skin cancer, including the ABCDE's of melanoma. C. Maynard Angiomas - Discussed benign nature of lesion and provided reassurance. No treatment necessary at this time. - Briefly discussed V Beam should these lesion become to numerous and bothersome to patient FOLLOW UP: Will follow-up with her PCP and return as needed for suspicious lesions per patient preference. Patient instructed to call with questions or concerns. I am documenting this encounter acting as the scribe for and in the presence of Dr. Hitchcock.: ARCADIO GRAFF LPN and Kareen Hansen, Clinical Scribe, I performed the above scribed service and agree with the accuracy of the documentation in this encounter. Amira Hitchcock MD Section of Dermatology [facility] documented in this encounter Plan of Treatment Not on file documented as of this encounter Visit Diagnoses Diagnosis Multiple benign nevi Benign neoplasm of skin, site unspecified Blue nevus Maynard angioma Nevus, non-neoplastic documented in this encounter Care Teams Rougher Machine Operator Relationship Specialty Start Date End Date Kate Benitez APRN PCP - General 04/30/15 03/22/19 documented as of this encounter
--- OUTSIDE RECORDS SUMMARY | 2024-05-17 16:10 | XMS_ITS | Encounter Summary ---
Author Organization [facility] Address [address] [place] [address] Care Team Providers Care Computer Operations Supervisor Name Role Phone Unavailable Primary Care Provider Unavailabl e Encounter Details Date Type Department Care Team (Late st Contact Info) Description 10/20/2011 Results Only [facility] - [facility] ([facility] [address] [place], [place] [id number] Eloisa Bella, LISHA [address] [place] [address] Social History Tobacco Use Types [...] Diagnosis Comments PAP TEST- RESULT ONLY Routine 10/20/2011 0:00 EST documented in this encounter Results * PAP TEST- RESULT ONLY (10/20/2011 0:00 EST) Pathology Report: CYTOPATHOLOGY REPORT Reports generated via electronic interface contain original data; however they are lacking the format of the original report. Caution should be taken when reading/interpreti ng unformatted reports. Name: ? PATRICIA ANDREW ? Accession #: ? [id number] ? : ? 1975 (Age: 36) ??F ?Collect Date: ? 10/20/2011 ? Location: ? [facility] ? Receive Date: ? 10/22/2011 ? Provider: ELOISA BELLA NP Copy to: ? Final Report SPECIMEN ADEQUACY ? Satisfactory for Evaluation - transformation zone component present GENERAL CATEGORIZATION ? Negative for Intraepithelial Lesion or Malignancy ?? Last Menstural Period: 10/16/11 Specimen/Source: ??Pap Test, Cervix/Endocervix, ThinPrep Imaging System with manual evaluation Document reviewed and electronically signed by: ? Karni Boone, [facility](ASCP) ? Report ??Date: 10/28/2011 14:35 HPV with Pap Test ? Date Ordered: ? 10/28/2011 ? Status: ?? Signed Out ?Date Complete: ? 11/02/2011 ? By: ??System Interface ? Date Reported: ? 11/02/2011 ? Interpretation RESULT: Negative for HPV types 16, 18, 31, 33, 35, 39, 45, 51, 52, 56, 58, 59, and 68. Comments Document reviewed and electronically signed by: ? System Interface ? Report date: 11/02/2011 By the signature above, the attending physician certifies that he/she has personally conducted a gross and/or microscopic examination of the described specimens and rendered or confirmed the above diagnosis. End of Report [facility] 10/20/2011 10/22/2011 Eloisa Bella NP PATHOLOGY ORDERABLES [facility] [address] [place] [address] documented in this encounter Visit Diagnoses Not on filedocumented in this encounter
--- OUTSIDE RECORDS SUMMARY | 2024-05-17 16:10 | XMS_ITS | Encounter Summary ---
Author Organization Count Includes [facility] [address] Care Team Providers Care Bass Fisher Name Role Phone Kate Benitez Jaun BARDALES Primary Care Provider [phone] Reason for Visit * Reason Onset Date Comments Pre Procedure Call 06/01/2016 Encounter Details Date Type Department Care Team (Late st Contact Info) Description 06/01/2016 [place] [phone] Duncan Evangelista MD [facility] [place] [address] Pre Procedure Call Social History Tobacco Use [...] encounter Miscellaneous Notes * Telephone Encounter - Ange Hawk - 06/01/2016 9:48 AM EDT When is your procedure? 07/03/16- bilateral carpal tunnel surgery Who is your surgeon? Jean Carlos What is the question you would like to ask? She is calling back to go over appointments and confirmsurgery time. Best number to reach the patient # [phone] documented in this encounter Plan of Treatment Not on file documented as of this encounter Visit Diagnoses Not on filedocumented in this encounter Care Teams Bass Fisher Relationship Specialty Start Date End Date Kate Benitez APRN PCP - General 04/30/15 03/22/19 documented as of this encounter
--- OUTSIDE RECORDS SUMMARY | 2024-05-17 16:10 | XMS_ITS | Encounter Summary ---
Author Organization [facility] Address [address] [place] [address] Care Team Providers Care Streetcar Dispatcher Name Role Phone Unavailable Primary Care Provider Unavailabl e Encounter Details Date Type Department Care Team (Late st Contact Info) Description 05/24/2006 Results Only [facility] [place] conversion [address] [place] [address] Eloisa Bella, LISHA [address] [place] [address] Social History Tobacco Use Types [...] Priority Date/Time Associated Diagnosis Comments CYTOPATHOLOGY Routine 05/24/2006 0:00 EDT documented in this encounter Results * CYTOPATHOLOGY (05/24/2006 0:00 EDT) Pathology Report: CYTOPATHOLOGY REPORT Reports generated via electronic interface contain original data; however they are lacking the format of the original report. Caution should be taken when reading/interpreti ng unformatted reports. Name: ? PATRICIA ANDREW ? Accession #: ? [id number] : ? 1975 (Age: 30) ??F ?Collect Date: ? 05/24/2006 Location: ? [facility] ? Receive Date: ? 05/26/2006 Provider: ?ELOISA BELLA ELECTRIC REFRIGERATOR SERVICER Copy to: ? Specimen/Source: ?ThinPrep Pap Test, Cervix/Endocervix, processed on unbound technologies ThinPrep Imaging System, with manual evaluation Last Menstrual Period: ? 05/19/06 Other: ? HPVA - HPV testing requested if ASC-US on the current ThinPrep Pap test. ? SPECIMEN ADEQUACY ? Satisfactory for Evaluation - transformation zone component present GENERAL CATEGORIZATION ? Negative for Intraepithelial Lesion or Malignancy ? Document reviewed and electronically signed by: ? Karin Boone, SCT(ASCP) ? Report Date: ??05/31/2006 11:48 End of Report [facility] 05/24/2006 05/26/2006 Eloisa Bella NP PATHOLOGY ORDERABLES [facility] [address] [place] [address] documented in this encounter Visit Diagnoses Not on filedocumented in this encounter
--- OUTSIDE RECORDS SUMMARY | 2024-05-17 16:10 | XMS_ITS | Encounter Summary ---
Author Organization [facility] [place] [address] Care Team Providers Care Inpatient Auditor Name Role Phone Kate Benitez APRN Primary Care Provider [phone] Encounter Details Date Type Department Care Team (Late st Contact Info) Description 04/07/2016 External [place] [address] Smitha John MD [facility] [place] [address] Social History Tobacco Use Types Packs/Day Years [...] Procedure Name Priority Date/Time Associated Diagnosis Comments EMG SCAN Routine 04/06/2016 documented in this encounter Results * Scan Doc: EMG (04/06/2016) Smitha John MD MEDIA MGR SCAN EXT ORDR/RSLT documented in this encounter Visit Diagnoses Not on filedocumented in this encounter Care Teams Inpatient Auditor Relationship Specialty Start Date End Date Kate Benitez APRN PCP - General 04/30/15 03/22/19 documented as of this encounter
--- OUTSIDE RECORDS SUMMARY | 2024-05-17 16:10 | XMS_ITS | Encounter Summary ---
Author Organization [facility] [place] [address] Care Team Providers Care Senior Data Integration Developer Name Role Phone Kate Benitez CATIA Primary Care Provider [phone] Reason for Referral * Consultation (Routine) - Closed Specialty Diagnoses / Procedures Referred By Toya ortiz Referred To Contact Orthopaedics Diagnoses Carpal tunnel syndrome, bilateral Philip Nguyễn MD [facility] [place] [address] Duncan Evangelista MD [facility] [place] [address] Referral ID Status Reason Start Date Expiration Date V isits Requested Visits Authorized [id number] Closed Consult, Test & Treat 04/09/2016 04/09/2017 1 1 Encounter Details Date Type Department Care Team (Late st Contact Info) Description 04/09/2016 Orders [place] [phone] Philip Nguyễn MD [facility] [place] [address] Carpal tunnel syndrome, bilateral Social History Tobacco [...] as of this encounter Plan of Treatment Scheduled Referrals Name Type Priority Associated Diagnoses Order Schedule Referral to Orthopaedics Outpatient Referral Routine Carpal tunnel syndrome, bilateral Ordered: 04/09/2016 documented as of this encounter Visit Diagnoses Diagnosis Carpal tunnel syndrome, bilateral Carpal tunnel syndrome documented in this encounter Care Teams Senior Data Integration Developer Relationship Specialty Start Date End Date Kate Benitez APRN PCP - General 04/30/15 03/22/19 documented as of this encounter
--- OUTSIDE RECORDS SUMMARY | 2024-05-17 16:10 | XMS_ITS | Encounter Summary ---
Author Organization [facility] Address [address] [place] [address] Care Team Providers Care Ndt Inspector Name Role Phone Unknown, Provider Primary Care Provider Encounter Details Date Type Department Care Team (Late st Contact Info) Description 01/10/2021 Lab Requisition [facility] Pathology & Laboratory Medicine - [facility] [address] [place] [address] Outr Resulting Lab, Provider Social History Tobacco Use Types Packs/Day Years Used Date Smoking Tobacco: Never Assessed Sex and Gender Information Value Date Recorded Sex Assigned at Not on file Gender Identity Not on file Sexual Orientation Not on file documented as of this encounter Plan of Treatment Not on file documented as of this encounter Procedures Procedure Name Priority Date/Time Associated Diagnosis Comments HIV 1/2 ANTIGEN AND ANTIBODY, 4TH GENERATION Routine 01/09/2021 16:00 EDT documented in this encounter Results * HIV 1/2 ANTIGEN AND ANTIBODY, 4TH GENERATION (01/09/2021 16:00 EDT) HIV 1 and 2 Antibody/p24 Antigen, 4th Generation Negative Negative 01/12/2021 9:19 EDT [facility] Comment: If acute HIV-1 infection is suspected in a high risk ??patient, submit plasma specimen for HIV-1 RNA quantitation test. Fourth Generation assay performed on the Siemens PROnoiseaur. Blood VENOUS BLOOD / Unknown 01/09/2021 16:00 EDT 01/10/2021 15:59 EDT Provider Outr Resulting Lab IMMUNOLOGY A ND SEROLOGY ORDERABLES [facility] [address] [place] [address] documented in this encounter Visit Diagnoses Not on filedocumented in this encounter Care Teams Ndt Inspector Relationship Specialty Start Date End Date Unknown, Provider, PCP - General 06/27/15 documented as of this encounter
--- OUTSIDE RECORDS SUMMARY | 2024-05-17 16:10 | XMS_ITS | Encounter Summary ---
Author Organization [facility] Address [address] [place] [address] Care Team Providers Care Hydraulic Modeling Engineer Name Role Phone Unavailable Primary Care Provider Unavailabl e Encounter Details Date Type Department Care Team (Late st Contact Info) Description 08/06/2008 Before [facility] Converted Visit ([facility]) [facility] - [place] conversion [address] [place] [address] Eloisa Bella, HOSE OPERATOR [address] [place] [address] Social History Tobacco Use Types [...] Priority Date/Time Associated Diagnosis Comments CYTOPATHOLOGY Routine 08/06/2008 0:00 EST documented in this encounter Results * CYTOPATHOLOGY (08/06/2008 0:00 EST) Pathology Report: CYTOPATHOLOGY REPORT ? Reports generated via electronic interface contain original data; ? however they are lacking the format of the original report. ? Caution should be taken when reading/interpreti ng unformatted reports. ? Name: ? PATRICIA SEGAL ? Accession #: ? [id number] ? : ? 1975 (Age: 33) ??F ?Collect Date: ? 08/06/2008 ? Location: ? [facility] ? Receive Date: ? 08/08/2008 ? Provider: ?ELOISA BELLA NP ? Copy to: ? Specimen/Source: ?Pap Test, Cervix/Endocervix, ThinPrep Imaging System ? with manual evaluation ? Last Menstrual Period: ? 12/01/08 ? Other: ? HPVA - HPV testing requested if ASC-US on the current ThinPrep Pap test. ? SPECIMEN ADEQUACY ? Satisfactory for Evaluation ? - transformation zone component present ? GENERAL CATEGORIZATION ? Negative for Intraepithelial Lesion or Malignancy ? INTERPRETATION ? Fungal organisms present morphologically consistent with Clara species. ? Document reviewed and electronically signed by: ? Guillermina Candido, CT(ASCP) ? Report Date: ??08/10/2008 09:17 ? End of Report ? [facility] 08/06/2008 08/08/2008 Eloisa Bella HOSE OPERATOR PATHOLOGY ORDERABLES [facility] [address] [place] [address] documented in this encounter Visit Diagnoses Not on filedocumented in this encounter
--- OUTSIDE RECORDS SUMMARY | 2024-05-17 16:10 | XMS_ITS | Encounter Summary ---
Author Organization [facility] Address [address] [place] [address] Care Team Providers Care Patcher Wood Welder Name Role Phone Unavailable Primary Care Provider Unavailabl e Encounter Details Date Type Department Care Team (Late st Contact Info) Description 04/18/2015 Results Only [facility] [phone] Kate Bartholomew APRN [address] [place] [address] Social History Tobacco Use Types Packs/Day Years [...] Diagnosis Comments PAP TEST- RESULT ONLY Routine 04/18/2015 0:00 EDT documented in this encounter Results * PAP TEST- RESULT ONLY (04/18/2015 0:00 EDT) Pathology Report: CYTOPATHOLOGY REPORT Reports generated via electronic interface contain original data; however they are lacking the format of the original report. Caution should be taken when reading/interpreti ng unformatted reports. Name: ? PATRICIA ANDREW ? Accession #: ? [id number] : ? 1975 (Age: 39) ??F ?Collect Date: ? 04/18/2015 Location: ? [facility] ? Receive Date: ? 04/19/2015 Provider: ?KATE BARTHOLOMEW APRN Copy to: ? Specimen/Source: ?Pap Test, Cervix/Endocervix, ThinPrep Imaging System with manual evaluation Last Menstrual Period: ? SPECIMEN ADEQUACY ? Satisfactory for Evaluation - transformation zone component present GENERAL CATEGORIZATION ? Negative for Intraepithelial Lesion or Malignancy ? Document reviewed and electronically signed by: ? Julisa Valerio, CT(ASCP) ? Report Date: ??04/23/2015 08:51 End of Report [facility] 04/18/2015 04/19/2015 Kate Bartholomew APRN PATHOLOGY ORDERABLES [facility] [address] [place] [address] documented in this encounter Visit Diagnoses Not on filedocumented in this encounter
--- OUTSIDE RECORDS SUMMARY | 2024-05-17 16:10 | XMS_ITS | Encounter Summary ---
Author Organization [facility] Address [address] [place] [address] Care Team Providers Care Neon Glass Blower Name Role Phone Unavailable Primary Care Provider Unavailabl e Encounter Details Date Type Department Care Team (Late st Contact Info) Description 04/14/2004 Results Only [facility] [place] [facility] [address] [place] [address] Eloisa Bella, LISHA [address] [place] [address] Social History Tobacco Use Types [...] Priority Date/Time Associated Diagnosis Comments CYTOPATHOLOGY Routine 04/14/2004 0:00 EDT documented in this encounter Results * CYTOPATHOLOGY (04/14/2004 0:00 EDT) Pathology Report: CYTOPATHOLOGY REPORT Reports generated via electronic interface contain original data; however they are lacking the format of the original report. Caution should be taken when reading/interpreti ng unformatted reports. Name: ? PATRICIA ANDREW ? Accession #: ? [id number] : ? 1975 (Age: 28) ??F ?Collect Date: ? 04/14/2004 Location: ? [facility] ? Receive Date: ? 04/16/2004 Provider: ?ELOISA BELLA FEED AND FARM MANAGEMENT ADVISER Copy to: ? Specimen/Source: ?ThinPrep Pap Test, Cervix/Endocervix Last Menstrual Period: ? 11/24 Hormonal/Contracep tive Status: ? Intrauterine device Other: ? HPVA - HPV testing requested if ASC-US on the current ThinPrep Pap test. ? SPECIMEN ADEQUACY ? Satisfactory for Evaluation - transformation zone component present GENERAL CATEGORIZATION ? Negative for Intraepithelial Lesion or Malignancy ? Document reviewed and electronically signed by: ? ZARIA Eduardo(ASCP) ? Report Date: ??04/18/2004 10:55 End of Report [facility] 04/14/2004 04/16/2004 Eloisa Bella NP PATHOLOGY ORDERABLES [facility] [address] [place] [address] documented in this encounter Visit Diagnoses Not on filedocumented in this encounter
--- OUTSIDE RECORDS SUMMARY | 2024-05-17 16:10 | XMS_ITS | Encounter Summary ---
Author Organization [facility] [place] [address] Care Team Providers Care Manager Ecommerce Name Role Phone Kate Benitez APRN Primary Care Provider Encounter Details Date Type Department Care Team (Late st Contact Info) Description 10/16/2017 [place] [address] Duncan Evangelista MD [facility] [place] [address] Social History Tobacco Use Types Packs/Day Years [...] encounter Miscellaneous Notes * Telephone Encounter - Duncan Evangelista MD - 10/16/2017 8:25 AM EST This patient was not seen in this encounter. documented in this encounter Plan of Treatment Not on file documented as of this encounter Visit Diagnoses Diagnosis DH PATIENT NOT SEEN documented in this encounter Care Teams Manager Ecommerce Relationship Specialty Start Date End Date Kate Benitez APRN PCP - General 04/30/15 03/22/19 documented as of this encounter
--- OUTSIDE RECORDS SUMMARY | 2024-05-17 16:10 | XMS_ITS | Encounter Summary ---
Author Organization [facility] Address [address] [place] [address] Care Team Providers Care Collection Correspondent Name Role Phone Unavailable Primary Care Provider Unavailabl e Encounter Details Date Type Department Care Team (Late st Contact Info) Description 05/04/2005 Results Only [facility] [place] conversion [address] [place] [address] Eloisa Bella, LISHA [address] [place] [address] Social History Tobacco Use Types [...] Priority Date/Time Associated Diagnosis Comments CYTOPATHOLOGY Routine 05/04/2005 0:00 EDT documented in this encounter Results * CYTOPATHOLOGY (05/04/2005 0:00 EDT) Pathology Report: CYTOPATHOLOGY REPORT Reports generated via electronic interface contain original data; however they are lacking the format of the original report. Caution should be taken when reading/interpreti ng unformatted reports. Name: ? PATRICIA ANDREW ? Accession #: ? [id number] : ? 1975 (Age: 29) ??F ?Collect Date: ? 05/04/2005 Location: ? [facility] ? Receive Date: ? 05/06/2005 Provider: ?ELOISA BELLA HOME DELIVERY DRIVER Copy to: ? Specimen/Source: ?ThinPrep Pap Test, Cervix/Endocervix, processed on [employer] ThinPrep Imaging System, with manual evaluation Last Menstrual Period: ? Menstrual/Pregnanc y Status: ? Irregular Hormonal/Contracep tive Status: ? Intrauterine device Control Pills Other: ? HPVA - HPV testing requested if ASC-US on the current ThinPrep Pap test. ? SPECIMEN ADEQUACY ? Satisfactory for Evaluation - transformation zone component present GENERAL CATEGORIZATION ? Negative for Intraepithelial Lesion or Malignancy ? Document reviewed and electronically signed by: ? ZARIA Prasad(ASCP) ? Report Date: ??05/13/2005 14:05 End of Report [facility] 05/04/2005 05/06/2005 Eloisa Bella NP PATHOLOGY ORDERABLES Performing Organization Address City/State/[facility] Co de Phone Number [facility] [address] [place] [address] documented in this encounter Visit Diagnoses Not on filedocumented in this encounter
--- OUTSIDE RECORDS SUMMARY | 2024-05-17 16:10 | XMS_ITS | Encounter Summary ---
Author Organization [facility] [address] Care Team Providers Care Database Coordinator Name Role Phone Kate Benitez CATIA Primary Care Provider [phone] Reason for Visit * Reason Comments Bilateral Carpal Tunnel Syndrome * Consultation (Routine) - Closed Specialty Diagnoses / Procedures Referred By Toya ortiz Referred To Contact Orthopaedics Diagnoses Carpal tunnel syndrome, bilateral Philip Nguyễn MD [facility] [place] [address] Duncan Evangelista MD [facility] [address] Referral ID Status Reason Start Date Expiration Date V isits Requested Visits Authorized [id number] Closed Consult, Test & Treat 04/09/2016 04/09/2017 1 1 Encounter Details Date Type Department Care Team (Late st Contact Info) Description 05/13/2016 8:00 AM EDT Office [place] [phone] Duncan Evangelista MD [facility] [address] Carpal tunnel syndrome, bilateral Social [...] Sign Reading Time Taken Comments Blood Pressure 115/77 05/13/2016 8:12 AM EDT Pulse 56 05/13/2016 8:12 AM EDT Temperature - - Respiratory Rate - - Oxygen Saturation - - Inhaled Oxygen Concentration - - Weight 65.8 kg (145 lb) 05/13/2016 8:12 AM EDT s tated Height 167.6 cm (5' 6) 05/13/2016 8:12 AM EDT s tated Body Mass Index 23.4 05/13/2016 8:12 AM EDT documented in this encounter Progress Notes * Duncan Evangelista MD - 05/13/2016 8:00 AM EDT I saw Patricia Andrew in conjunction with Loyd Nguyen MD and I agree with Dr. Nguyen's note. She has longstanding symptoms consistent with bilateral carpal tunnel syndrome as well as significantly positive electrodiagnostic studies bilaterally. Her symptoms include some nocturnal dysesthesias, some daytime numbness, and symptoms while driving. She has no significant thenar atrophy but her Phalen's test was positive bilaterally. I reviewed the findings with the patient and I did offer her the option of carpal tunnel decompressions. She could do these staged or at the same setting. She is aware these likely would be done endoscopically although an open procedure may need to be done. She is aware that with surgery there are potential risks which include but are not limited to infection, neurovascular or tendon injury, incomplete of no relief in her neurogenic symptoms, pillar pain, golf cart mechanic weakness, and recurrence of her carpal tunnel syndrome. She will make her decision and proceed once she is ready to do so. She will likely have both carpal tunnels released at the same surgical setting. * Loyd Nguyen - 05/13/2016 8:00 AM EDT ORTHOPEDIC SURGERY NEW PATIENT VISIT CHIEF COMPLAINT: Bilateral carpal tunnel syndrome. This consultation is from Larry Nguyễn MD. HISTORY OF PRESENT ILLNESS: The patient is a 40-year-old female who reports that she has had years of numbness and tingling throughout both of her hands bilaterally. She was recently seen by a neurologist, had EMG testing, and nerve conduction studies were completed showing moderate to severe carpal tunnel syndrome bilaterally. The patient reports that she has numbness, tingling, buzzing in her hands on a regular basis. She notes it particularly troublesome to be driving, painting, and yard work. After she had painted her house, she noticed these symptoms increase for several months afterwards. She still gets numbness and tingling with driving, and she notes it when she wakes up in the morning. She has tried splinting without relief. She does not have any particular trouble with weakness, clumsiness, or dropping things. She has not had any significant injuries to bilateral wrists. Patient does not have any neck pain or pain that radiates down her arms. She does not have any change in her gait or other neurologic abnormalities in her lower extremities. She also notes that she has had an injury to her right fifth finger that occurred approximately 7 years ago while playing basketball. She reports that it was dislocated at the time and reduced successfully without any underlying fracture per report. She says that it has become progressively contracted since that time, but it does not bother her much at all. PAST MEDICAL HISTORY: None. PAST SURGICAL HISTORY: None. MEDICATIONS: None. REVIEW OF SYSTEMS: Per HPI. ALLERGIES: None. SOCIAL HISTORY: No tobacco, occasional alcohol, right-hand dominant teacher. FAMILY HISTORY: Negative for bleeding, blood clots, trouble with anesthesia. PHYSICAL EXAM: General: No acute distress, resting comfortably in the exam chair. Bilateral upper extremities: There are no visible abnormalities of bilateral upper extremities. There is no atrophy of the thenar eminence. Patient does not have any numbness or tingling on exam this morning. She has 5/5 strength with finger flexion/extension, interosseous function; 5/5 strength with some opposition, abduction, extension. Negative Durkan's bilaterally, negative Tinel's bilaterally. Positive Phalen's on the left, none on the right. Negative Tinel's at the elbows bilaterally. Right fifth finger: There is contracture of the right fifth PIP joint. This does appear to be a capsular contracture. No other abnormality. She remains able to flex at the joint. EMG/NERVE CONDUCTION STUDIES: EMG nerve conduction studies were reviewed, which do show moderate to severe carpal tunnel syndrome at the wrist bilaterally. ASSESSMENT AND PLAN: Patient is a 40-year-old female coming to see us with bilateral carpal tunnel syndrome that has been present for several years. Based on her symptoms and on EMG and nerve conduction study, she has moderate to severe disease and we have recommended bilateral release for this issue. We did automobile travel club counselor the patient that she could try additional splinting or injections, but these would likely not be curative from a long-term standpoint. Based on the possibility of developing permanent deficits, it is appropriate to address her compression bilaterally. The patient is amenable to this plan and interested in trying to get both wrists done at the same time. She signed a consent for bilateral releases today. We did discuss that if she was to require open release in her first wrist that we would then hold off on completing the second wrist until a later date. The patient will be scheduled for surgery at her convenience and per availability. * Janice Alejandre RN - 05/13/2016 8:00 AM EDT Pre op teaching done for endoscopic carpal tunnel release. Emphasis placed on post op hand elevation with hand above heart,fingers above palm,palm above wrist and wrist above elbow. Discussed importance of flexing fingers against original dressing.Take dressing off on day 3 and fully flex and extend fingers.Place Band-Aid over suture,no ointments. Reviewed suggestions for takingpost op pain medication. Questions solicited and answered to patient satisfaction. Written material provided. Patient knows to call with any additional questions or concerns. Of note patient planning to have bialateral releases at same setting documented in this encounter Plan of Treatment Not on file documented as of this encounter Visit Diagnoses Diagnosis Carpal tunnel syndrome, bilateral Carpal tunnel syndrome documented in this encounter Care Teams Database Coordinator Relationship Specialty Start Date End Date Kate Benitez APRN PCP - General 04/30/15 03/22/19 documented as of this encounter
--- OUTSIDE RECORDS SUMMARY | 2024-05-17 16:10 | XMS_ITS | Clinical Summary ---
Author Organization [facility] [place] [address] Care Team Providers Care Mirror Painter Name Role Phone Unknown Primary Care Provider Unavailabl e Allergies Active Allergy Reactions Criticality Noted Date Comments Tramadol Nausea And Vomiting 08/12/2016 Medications No known medications Active Problems Problem Noted Date Diagnosed Date Carpal tunnel syndrome, bilateral 05/13/2016 Family History Medical History Relation Comments Cancer Mother Relation Status Comments Mother Social History Tobacco Use Types Packs/Day Years Used Date Smoking Tobacco: Never Smokeless Tobacco: Never Alcohol Use Standard Drinks/Week Comments Yes 0 (1 standard drink = 0.6 oz pur e alcohol) 5 drinks weekly Sex and Gender Information Value Date Recorded Sex Assigned at Not on file Gender Identity Not on file Sexual Orientation Not on file Last Filed Vital Signs Vital Sign Reading Time Taken Comments Blood Pressure 106/77 08/12/2016 3:58 PM EST Pulse 80 08/12/2016 3:58 PM EST Temperature 36.1 ??C (97 ??F) 07/31/2016 11:22 AM EST Respiratory Rate 16 07/31/2016 11:22 AM EST Oxygen Saturation 99% 07/31/2016 11:22 AM EST Inhaled Oxygen Concentration - - Weight 68 kg (150 lb) 08/12/2016 3:58 PM EST sta lorenzo Height 165.1 cm (5' 5) 08/12/2016 3:58 PM EST s tated Body Mass Index 24.96 08/12/2016 3:58 PM EST Plan of Treatment Health Maintenance Due Date Last Done Comments CT Colonography 1975 Colonoscopy 1975 Colorectal Cancer Screening 1975 FIT DNA 1975 FIT 1975 Sigmoidoscopy (10 year) with FIT yearly 1975 Sigmoidoscopy 1975 HIV screen 1991 Hepatitis C Screening 1991 Hepatitis B vaccine (0-59 yrs) (1) 1992 Tetanus/Diphtheria/Pertussis Vaccines (1 - Tdap) 06/22 HPV test 2003 PAP Smear 2003 Breast Cancer Share Decision Needed 2013 Breast Cancer screening 2013 Zoster vaccine (1 of 2) 2023 Covid-19 Vaccine (1 - 2022- season) 2024 Influenza (Flu) vaccine (1 o f 1 - Influenza standard series) 04/23/2024 Advance Directives * Full Code (Latest Code Status on File) Date Activated Date Inactivated Comments 07/31/2016 10:30 AM 07/31/2016 2:38 PM Question Answer Comments Does patient have capacity to make decision: Yes Care Teams Mirror Painter Relationship Specialty Start Date End Date Unknown None PCP - General 03/23/19
--- OUTSIDE RECORDS SUMMARY | 2024-05-17 16:10 | XMS_ITS | Encounter Summary ---
Author Organization [facility] Address [address] [place] [address] Care Team Providers Care Director Of Regulatory Affairs Name Role Phone Unavailable Primary Care Provider Unavailabl e Encounter Details Date Type Department Care Team (Late st Contact Info) Description 08/25/2010 Results Only [facility] - [facility] [address] [place], [place] [id number] Eloisa Bella, LISHA [address] [place] [address] Social History Tobacco Use Types [...] Priority Date/Time Associated Diagnosis Comments CYTOPATHOLOGY Routine 08/25/2010 0:00 EST documented in this encounter Results * CYTOPATHOLOGY (08/25/2010 0:00 EST) Pathology Report: CYTOPATHOLOGY REPORT ? Reports generated via electronic interface contain original data; ? however they are lacking the format of the original report. ? Caution should be taken when reading/interpreti ng unformatted reports. ? Name: ? PATRICIA SEGAL ? Accession #: ? [id number] ? : ? 1975 (Age: 35) ??F ?Collect Date: ? 08/25/2010 ? Location: ? [facility] ? Receive Date: ? 08/27/2010 ? Provider: ?ELOISA BELLA NP ? Copy to: ? Specimen/Source: ?Pap Test, Cervix/Endocervix, ThinPrep Imaging System ? with manual evaluation ? Last Menstrual Period: ? 11/26/10 ? SPECIMEN ADEQUACY ? Satisfactory for Evaluation ? - transformation zone component present ? GENERAL CATEGORIZATION ? Negative for Intraepithelial Lesion or Malignancy ? Document reviewed and electronically signed by: ? Lynan Erick, CT(ASCP) ? Report Date: ??08/29/2010 10:02 ? End of Report ? [facility] 08/25/2010 08/27/2010 Moreno Brodzinski SIEBEL SOLUTION ARCHITECT PATHOLOGY ORDERABLES Performing Organization Address City/State/[facility] Co de Phone Number [facility] [address] [place] [address] documented in this encounter Visit Diagnoses Not on filedocumented in this encounter
--- OUTSIDE RECORDS SUMMARY | 2024-05-17 16:10 | XMS_ITS | Encounter Summary ---
Author Organization [facility] Address [address] [place] [address] Care Team Providers Care Fruit Press Operator Name Role Phone Unavailable Primary Care Provider Unavailabl e Encounter Details Date Type Department Care Team (Late st Contact Info) Description 08/12/2009 Orders Only [facility] Laboratory Services - [facility] [place] [place] [address] [place] [address] Eloisa Bella, LISHA [address] [place] [address] Social History Tobacco Use Types [...] Priority Date/Time Associated Diagnosis Comments CYTOPATHOLOGY Routine 08/12/2009 0:00 EST documented in this encounter Results * CYTOPATHOLOGY (08/12/2009 0:00 EST) Pathology Report: CYTOPATHOLOGY REPORT ? Reports generated via electronic interface contain original data; ? however they are lacking the format of the original report. ? Caution should be taken when reading/interpreti ng unformatted reports. ? Name: ? PATRICIA SEGAL ? Accession #: ? [id number] ? : ? 1975 (Age: 34) ??F ?Collect Date: ? 08/12/2009 ? Location: ? [facility] ? Receive Date: ? 08/14/2009 ? Provider: ?ELOISA BELLA NP ? Copy to: ? Specimen/Source: ?Pap Test, Cervix/Endocervix, ThinPrep Imaging System ? with manual evaluation ? Last Menstrual Period: ? 12/14/09 ? Other: ? HPVA - HPV testing requested if ASC-US on the current ThinPrep Pap test. ? SPECIMEN ADEQUACY ? Satisfactory for Evaluation ? - transformation zone component present ? GENERAL CATEGORIZATION ? Negative for Intraepithelial Lesion or Malignancy ? Document reviewed and electronically signed by: ? Cecile Daisy, CT(ASCP) ? Report Date: ??08/19/2009 10:33 ? End of Report ? [facility] 08/12/2009 08/14/2009 Eloisa Bella NP PATHOLOGY ORDERABLES [facility] [address] [place] [address] documented in this encounter Visit Diagnoses Not on filedocumented in this encounter
--- OUTSIDE RECORDS SUMMARY | 2024-05-17 16:10 | XMS_ITS | Encounter Summary ---
Author Organization [facility] Address [facility] [place] [address] Care Team Providers Care Enrichment Teacher Name Role Phone EmmanuelKate Jaun BARDALES Primary Care Provider [phone] Encounter Details Date Type Department Care Team (Late st Contact Info) Description 05/12/2016 Telephone Dermatology at [address] [address] Jason Pandey MD [facility] [place] [address] Social History Tobacco Use Types Packs/Day Years [...] encounter Miscellaneous Notes * Telephone Encounter - Jerrell Srinivasan - 05/12/2016 2:47 PM EDT Perlita, from [facility], called regarding this patients note. It was sent the them and they are wondering if the notes were sent to them on accident or if you are referring this patient tosee them. Her number is [phone]. Thanks! documented in this encounter Plan of Treatment Not on file documented as of this encounter Visit Diagnoses Not on filedocumented in this encounter Care Teams Enrichment Teacher Relationship Specialty Start Date End Date Kate Benitez APRN PCP - General 04/30/15 03/22/19 documented as of this encounter
--- OUTSIDE RECORDS SUMMARY | 2024-05-17 16:10 | XMS_ITS | Encounter Summary ---
Author Organization [facility] [place] [address] Care Team Providers Care Supervisor Dairy Sanitation Name Role Phone Kaet Benitez CATIA Primary Care Provider [phone] Reason for Visit * Auth/Cert Specialty Diagnoses / Procedures Referred By Toya ortiz Referred To Contact Diagnoses Bilateral Carpal Tunnel Syndrome Procedures PRO WRIST ARTHROSCOP, RELEASE XVERS LIG ENDOSCOPY WRIST W/ RELEASE TRANSVERSE CARPAL LIGAMENT Referral ID Status Reason Start Date Expiration Date Visits Re quested Visits Authorized [id number] 1 1 Encounter Details Date Type Department Care Team (Late st Contact Info) Description 07/31/2016 11:00 AM EST - 07/31/2016 12:15 PM EST Surgery [place] [address] Dion Evangelista MD [facility] [address] [place] [address] ENDOSCOPY WRIST W/ RELEASE TRANSVERSE CARPAL LIGAMENT-CAM (WRVU 6.39) Social History Tobacco Use Types Packs/Day Years [...] closest emergency room or call the hospital fork truck operator at [phone] and ask for physician service liaison representative covering for your physician. Questions or problems after 5pm or on a weekend: Call the [facility] fork truck operator at and ask for the physician service liaison representative covering for your doctor. documented in [...] Evangelista MD - 07/31/2016 11:29 AM EST [facility] Operative Note Patient Name: Patricia Andrew : [id number] MR#: [id number] Case Date: 07/31/2016 Surgeon: Surgeon(s) and Role: * Dion Evangelista MD - Primary * Susan Vick PA - Physician Video Effects Editor PREOPERATIVE DIAGNOSIS: Bilateral carpal tunnel syndrome. POSTOPERATIVE [...] A preoperative time-out was performed as per [facility] protocol. 7mL of 1% lidocaine with epinephrine [...] Operative Note Patient Name: Patricia Andrew : [id number] MR#: [id number] Case Date: 07/31/2016 Surgeon: Surgeon(s) and Role: * Dion Evangelista MD - Primary * Susan Vick PA - Physician Video Effects Editor Preoperative diagnosis: Bilateral Carpal Tunnel Syndrome Postoperative [...] Carpal tunnel syndrome, bilateral Carpal tunnel syndrome Carpal tunnel syndrome, bilateral Carpal tunnel syndrome [...] of Procedure), Routine lidocaine-EPINEPHrine 1 %-1:100,000 injection ONCE PRN, Starting on Wed07/31/16 at 1105, Until Wed07/31/16 at 1437, Intra-Operative (Intra-Procedure), Routine Given 07/31/2016 11:05 AM EST 14 mLs sodium chloride 0.9 % flush 5-20 mL [...] Recovery documented in this encounter Care Teams Supervisor Dairy Sanitation Relationship Specialty Start Date End Date Kate Benitez APRN PCP - General 04/30/15 03/22/19 documented as of this encounter
--- OUTSIDE RECORDS SUMMARY | 2024-05-17 16:10 | XMS_ITS | Encounter Summary ---
Author Organization [facility] Address [facility] [place] [address] Care Team Providers Care Mortician Helper Name Role Phone Kate Bartholomew APRN Primary Care Provider [phone] Reason for Visit * Reason Comments Skin Check * Consultation (Routine) - Specialty Diagnoses / Procedures Referred By Toya ortiz Referred To Contact Dermatology Diagnoses Rosacea, unspecified Rosacea-Patient wants to go to [facility], doesn't want to wait until May. to see Dr. Colbert. Procedures Consult Kate Bartholmoew APRN [address] [place] [address] DR JU[address]REZ [address] [place] [address] [facility] Dermatology [address] [place] [address] Referral ID Status Reason Start Date Expiration Date V isits Requested Visits Authorized [id number] 03/30/2016 03/30/2017 1 1 Encounter Details Date Type Department Care Team (Late st Contact Info) Description 05/11/2016 4:15 PM EDT Office Visit Dermatology at [facility] [address] [place] [address] Jason Pandey MD [facility] [address] [place] [address] Angiofibroma; Blue nevus; Seborrheic keratosis Social History Tobacco Use Types Packs/Day Years [...] as of this encounter Progress Notes * Jason Pandey MD - 05/11/2016 4:15 PM EDT Images from the original note were not included. DERMATOLOGY CONSULT NOTE Date of service: 05/11/2016 Patricia Andrew : 1975 Provider: Jason Pandey MD Chief Complaint Patient presents with ??? Skin Check The patient is seen at the request of KATE BARTHOLOMEW APRN, who instructed the patient to be seen for evaluation of above, SKIN HX: No past skin history. HPI Patricia Andrew is a 40 y.o. year old female, new to me and to dermatology. Here today for a full skin cancer examination. Patient has a few concerning moles located on the abdomen and back that areasymptomatic. Patient otherwise has not been seen by a document control supervisor in years. Patient has no further concerns today. MEDS: No current outpatient prescriptions on file. No current facility-administered medications for this visit. ADR: Review of patient's allergies indicates no known allergies. ROS General: feeling well Skin: denies other skin complaints MEDICAL HISTORY: There is no problem list on file for this patient. FAMILY HISTORY: No past skin history. 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 EXAM General: NAD, pleasant, cooperative Skin: Patient was asked to disrobe to the level of their comfort. A total body skin exam except for the genitalia was performed. This includes examination of the skin of the face, ears, neck, chest, axillae, left and right upper and lower extremities, hands, feet, abdomen, back, and buttocks. The genitalia, perineum, and perianal areas were not examined. Significant skin findings: A. Right chin: 4 mm. Dome shaped papule B. Left forehead: 3 mm. Brown/whitt macule Photo(s) taken (by Juliet Dillon clinical scribe) with patient's verbal consent: C. Left elbow: Warty stuck on papule ASSESSMENT/PLAN: A. Angiofibroma - Etiology discussed - Patient reassured lesions are benign in nature - No treatment warranted - Continue to monitor for changes and call if such occurs B. Blue nevus is favored on the forehead - Etiology discussed - Patient reassured lesion appears to benign in nature- photo taken for baseline documentation - Patient encouraged to take her own photo and check it monthly for change and call if seen for biopsy - Will recheck in 1 year or sooner if needed - No treatment warranted - Continue to monitor for changes and call if such occurs - The nature of sun-induced photo-aging and skin cancers was discussed. Emphasized importance of sun protection, sun avoidance strategies, protective clothing, and sunscreen of an SPF 50 or above with UVA and UVB protection. C. Seborrheic keratosis - Etiology discussed - Patient reassured lesions are benign in nature - No intervention warranted Follow up: 1 year full skin exam, sooner if needed. Reminder placed in system today. instructed to call with questions or concerns. Juliet Dillon, Clinical Scribe, I am documenting this encounter acting as the scribe for and in thepresence of Dr. Pandey: Sonal Morfin, [facility] I performed the above scribed service and agree with the accuracy of the documentation in this encounter. Jason Pandey MD [facility], Department of Surgery [facility] cc: KATE BARTHOLOMEW APRN documented in this encounter Plan of Treatment Not on file documented as of this encounter Visit Diagnoses Diagnosis Angiofibroma Benign neoplasm of unspecified site Blue nevus Seborrheic keratosis Other seborrheic keratosis documented in this encounter Care Teams Mortician Helper Relationship Specialty Start Date End Date Kate Bartholomew APRN PCP - General 04/30/15 03/22/19 documented as of this encounter
--- OUTSIDE RECORDS SUMMARY | 2024-05-17 16:10 | XMS_ITS | Encounter Summary ---
Author Organization [facility] Address [address] [place] [address] Care Team Providers Care Optoelectronics Engineer Name Role Phone Unknown, Provider Primary Care Provider Encounter Details Date Type Department Care Team (Latest Contact Info) Description 04/14/2022 Lab Requisition [facility] Pathology & Laboratory Medicine - [facility] [address], [place] [address] Iwona Cruz NP [address] [place] [address] Encounter for general adult medical examination without abnormal findings; Encounter for screening for malignant neoplasm of cervix; Encounter for screening for human papillomavirus (HPV) Social History Tobacco Use Types Packs/Day Years Used Date Smoking Tobacco: Never Assessed Sex and Gender Information Value Date Recorded Sex Assigned at Not on file Gender Identity Not on file Sexual Orientation Not on file documented as of this encounter Plan of Treatment Not on file documented as of this encounter Procedures Procedure Name Priority Date/Time Associated Diagnosis Comments PAP TEST Today 04/13/2022 8:30 EDT Encounter for general adult medical examination without abnormal findings Encounter for screening for malignant neoplasm of cervix Encounter for screening for human papillomavirus (HPV) HPV DNA DETECTION WITH GENOTYPING, PCR Today 04/13/2022 8:30 EDT Encounter for general adult medical examination without abnormal findings Encounter for screening for malignant neoplasm of cervix Encounter for screening for human papillomavirus (HPV) documented in this encounter Results * HUMAN PAPILLOMAVIRUS (HPV) DETECTION-HIGH RISK TYPES (04/13/2022 8:30 EDT) HPV other High Risk types, PCR Negative Negative 04/22/2022 20:10 EDT [facility] Comment:No E6 or E7 mRNA is detected from HPV types 16,18,31,33,35,39,45,51,52,56,58,59,66, and 68 by rail car repairman mediated amplification. Papanicolaou smear specimen (specimen) CERVIX UTERI STRUCTURE / Unknown 04/13/2022 8:30 EDT 04/22/2022 9:50 EDT Iwona Cruz NP MICROBIOLOGY - GENER AL ORDERABLES [facility] [address] [place] [address] * PAP TEST (04/13/2022 8:30 EDT) Specimens A. Cervix and/or Endocervix , ThinPrep Imaging System with Manual Evaluation 04/22/2022 20:10 [facility] Specimen Adequacy Satisfactory for Evaluation - transformation zone component present 04/22/2022 20:10 [facility] General Categorization Negative for intraepithelial lesion or malignancy 04/22/2022 20:10 [facility] Attestation . 04/22/2022 20:10 [facility] at 2010 Clinical History See below 04/22/20 20:10 [facility] HPV The result for the Human Papillomavirus (HPV) Detection-High Risk Types is Negative. No E6 or E7 mRNA is detected from HPV types 16,18,31,33,35,39 ,45,51,52,56,58,5 9,66, and 68 by rail car repairman mediated amplification.Aleisha ting was performed on specimen [id number] and was resulted on 04/22/20222005 EDT by JAKE, LAB INSTRUMENT RESULTS IN 04/22/2022 20:10 T [facility] Performing Lab [facility] 04/22/2022 20:10 [facility] Scanned Images 04/22/2022 20:10 [facility] Papanicolaou smear specimen (specimen) CERVIX UTERI STRUCTURE / Unknown 04/13/2022 8:30 EDT 04/14/2022 13:59 EDT Iwona Cruz NP PATHOLOGY ORDERABLES [facility] [address] [place] [address] documented in this encounter Visit Diagnoses Diagnosis Encounter for general adult medical examination without abnormal findings Unspecified general medical examination Encounter for screening for malignant neoplasm of cervix Screening for malignant neoplasm of the cervix Encounter for screening for human papillomavirus (HPV) Special screening examination for human papillomavirus (HPV) documented in this encounter Care Teams Optoelectronics Engineer Relationship Specialty Start Date End Date Unknown, Provider, PCP - General 06/27/15 documented as of this encounter
--- OUTSIDE RECORDS SUMMARY | 2024-05-17 16:10 | XMS_ITS | Encounter Summary ---
[place] [address] Care Team Providers Care Cia Agent Name Role Phone Kate Benitez CATIA Primary Care Provider [phone] Reason for Visit * Auth/Cert Specialty Diagnoses / Procedures Referred By Toya ortiz Referred To Contact Diagnoses Bilateral Carpal Tunnel Syndrome Procedures PRO WRIST ARTHROSCOP, RELEASE XVERS LIG ENDOSCOPY WRIST W/ RELEASE TRANSVERSE CARPAL LIGAMENT Referral ID Status Reason Start Date Expiration Date Visits Re quested Visits Authorized [id number] 1 1 Encounter Details Date Type Department Care Team (Late st Contact Info) Description 07/31/2016 10:49 AM EST Anesthesia Event [place] [address] Anthony Mix MD [facility] [place] [address] Izzy Low MD [facility] [place] [address] Anesthesia Record Procedure Summary Procedure Name Responsible Anesthesiologist Anesthesia Start Time Anesthesia Stop Time ENDOSCOPY WRIST W/ RELEASE TRANSVERSE CARPAL LIGAMENT-CAM (WRVU 6.39) (Bilateral: Wrist) Anthony Mix MD 07/31/16 1049 07/31/16 1123 Events Date Time Event Comment 07/31/2016 1032 1049 AN Verify 1049 Start 1049 An Start Data 1053 Anesthesia Ready 1053 Break/Relief In ANTHONY Huang MD 1119 an stop data 1123 Recovery or ICU Handoff Kae ent care was transferred to the destination unit staff after review of the patient's medical history, current anesthetic/surgical status and plan, according to the Provider Handoff Checklist. 1123 Stop Meds Name Total Midazolam 2 mg Propofol INF 251.6 mg ceFAZolin (ANCEF) 2 gram/50 mL infusion 2 g HYDROmorphone 0.8 mg lactated ringers infusion 1,000 mL 200 m L * Agents Name O2 Air N2O * Blood No blood administrations on file. Lines, Drains, and Airways Type Details Placement Removal (RETIRED) Peripheral IV Line - Single Lumen 07/31/16; 1039; other (see comments) (right medial ankle); hisj-wun-mbdhqx catheter system; 22 gauge, 1 in length; FITZ Unger; 1; (left lateral foot/ankle); 07/31/16; 1222 07/31/16 1039 by Thea Luevano RN 07/31/16 1222 by Loni Raman RN Incision 07/31/16; 1108; wrist; horizontal; 04/20/22 (LDA cleanup utility RA#[id number]); 1715 (LDA cleanup utility RA#[id number]) 07/31/16 1108 by Claudia Guajardo RN 04/20/22 1715 by Hussain Ohara documented in this encounter Social History Tobacco Use Types Packs/Day Years Used Date Smoking Tobacco: Never Smokeless Tobacco: Never Alcohol Use Standard Drinks/Week Comments Yes 0 (1 standard drink = 0.6 oz pur e alcohol) 5 drinks weekly Sex and Gender Information Value Date Recorded Sex Assigned at Not on file Gender Identity Not on file Sexual Orientation Not on file documented as of this encounter OR Notes * Anesthesia Postprocedure Evaluation - Anthony Mix MD - 07/31/2016 12:11 PM EST [facility] Department of Anesthesiology Post-procedure Note Patient: Patricia Andrew Procedure Summary Date Anesthesia Start Anesthesia Stop Room / Location 07/31/16 1049 1123 [facility] OR [address] [place] [address] [facility] Procedure Diagnosis Surgeon Responsible Provider ENDOSCOPY WRIST W/ RELEASE TRANSVERSE CARPAL LIGAMENT-CAM (WRVU 6.39) (Bilateral Wrist) Carpal tunnel syndrome, bilateral (Bilateral carpal tunnel Syndrome) Duncan Evangelista MD Nguyen, Tung T, MD All Anesthesia Providers: Anesthesiologist: Anthony Mix MD CENTRIFUGAL SCREEN TENDER: Yenny Hallman CRNA Last (1hr) Vitals: BP Temp Pulse Resp SpO2 Patient [facility]: PACU[facility] Level of Consciousness: Awake and Alert Pain Management: Satisfactory Analgesia PONV: None Cardiovascular Status: At Baseline Respiratory Status: At Baseline Postoperative Fluid Status: Intravascular EUvolemia Possible Anesthetic Complications: NONE apparent at time of evaluation Final Primary Anesthesia Type: MAC (The anesthetic type performed was the same as planned.) Comments: * Anesthesia Preprocedure Evaluation - Anthony Mix MD - 07/31/2016 10:00 AM EST Pre-Anesthesia Evaluation for: Patricia Andrew a 41 y.o. female. Procedure(s): ENDOSCOPY WRIST W/ RELEASE TRANSVERSE CARPAL LIGAMENT-CAM Patient Active Problem List Diagnosis ??? Carpal tunnel syndrome, bilateral No past medical history on file. No past surgical history on file. Social History Substance Use Topics ??? Smoking status: Never Smoker ??? Smokeless tobacco: Never Used ??? Alcohol use Yes Comment: 5 drinks weekly History Drug Use No No Known Allergies Medications: MAR and/or home medications have been reviewed. Physical Exam: There were no vitals filed for this visit. There is no height or weight on file to calculate BMI. Airway Assessment: Mallampati: II TM distance: >3 FB Neck ROM: full Cardiovascular Assessment: Rhythm: regular Rate: normal Pulmonary Assessment: breath sounds clear to auscultation Dental Assessment: - normal exam Misc Assessment: Patient is wearing No contact(s). IV access: Peripheral line Anesthesia Plan: ASA 1 MAC, with a(n) intravenous induction Attending NOTE Brief HPI: 41 y.o. with bilateral CTS to OR for bilateral CTR Patient Active Problem List: Carpal tunnel syndrome, bilateral METS:>4 Cardiac Symptoms: denies LABS: SVP LMP: Days ago - Risks of anesthesia and pregancy discussed with patient and she wishes to proceed to OR without obtaining a UPT Type and Screen: No results found for: ABORH Past anesthetic problems: denies Last anesthetic record (on eDH): none NPO status: Reviewed and appropriate Anesthetic Plan: mac Monitoring: Standard ASA monitors Region - Other Informed Consent: Anesthetic plan and risks discussed with patient. PAT Staff Note documented in this encounter Miscellaneous Notes * Addendum Note - Anthony Mix MD - 08/04/2016 8:36 PM EST Addendum created 08/04/162035 by Anthony Mix MD Anesthesia Attestations deleted, Anesthesia Attestations filed, Sign clinical note documented in this encounter Plan of Treatment Not on file documented as of this encounter Visit Diagnoses Not on filedocumented in this encounter Administered Medications Inactive Administered Medications - up to 3 most recent administrations Medication Order MAR Action Action Date Dose Rate Site ceFAZolin (ANCEF) 2 gram/50 mL infusion 1 dose, Starting on Wed07/31/16 at 1034, Until Wed07/31/16 at 1052, MARINA DAVIS: cabinet override Given 07/31/2016 10:52 AM EST 2 g HYDROmorphone (DILAUDID) injection PRN, Starting on Wed07/31/16 at 1106, Until Wed07/31/16 at 1126, Pain, Anesthesia Intra-op, Routine Given 07/31/2016 11:06 AM EST 0.4 mg Given 07/31/2016 10:51 AM EST 0.4 mg midazolam (PF) (VERSED) 1 mg/mL multi-dose injection PRN, Starting on Wed07/31/16 at 1049, Until Wed07/31/16 at 1126, Sleep, Anesthesia Intra-op, Routine Given 07/31/2016 10:49 AM EST 2 mg propofol (DIPRIVAN) infusion CONTINUOUS PRN, Starting on Wed07/31/16 at 1052, Until Wed07/31/16 at 1126, Anesthesia Intra-op, Routine Rate/Dose Change 07/31/2016 11:16 AM EST 100 mcg/kg/min 40.8 mL/hr New Bag 07/31/2016 10:52 AM EST 125 mcg/kg/min 51 mL/hr documented in this encounter Care Teams Cia Agent Relationship Specialty Start Date End Date Kate Benitez APRN PCP - General 04/30/15 03/22/19 documented as of this encounter
--- OUTSIDE RECORDS SUMMARY | 2024-05-17 16:10 | XMS_ITS | Encounter Summary ---
Author Organization [facility] [place] [address] Care Team Providers Care Well Logging Mud Analysis Captain Name Role Phone Kate Benitez APRN Primary Care Provider [phone] Reason for Visit * Reason Comments Numbness In Hand * Consultation (Routine) - Closed Specialty Diagnoses / Procedures Referred By Toya ortiz Referred To Contact Neurology Diagnoses carpal tunnel syndrome - Kate Del Real APRN [address] [place] [address] [address] [facility] Neurology [address] [place] [address] Referral ID Status Reason Start Date Expiration Date V isits Requested Visits Authorized [id number] Closed Consult, Test & Treat Connection Center PCP Updated and/or Approved 03/18/2016 03/18/2017 1 1 Encounter Details Date Type Department Care Team (Late st Contact Info) Description 04/06/2016 9:00 AM EDT Procedure [place] [address] Smitha John MD [facility] [place] [address] Philip Nguyễn MD [facility] [place] [address] Carpal tunnel syndrome, bilateral Social [...] Sign Reading Time Taken Comments Blood Pressure 109/74 04/06/2016 9:05 AM EDT Pulse 53 04/06/2016 9:05 AM EDT Temperature - - Respiratory Rate - - Oxygen Saturation - - Inhaled Oxygen Concentration - - Weight 67.3 kg (148 lb 6.4 oz) 04/06/2016 9:05 A M EDT Height 165.1 cm (5' 5) 04/06/2016 9:05 AM EDT Body Mass Index 24.7 04/06/2016 9:05 AM EDT documented in this encounter Progress Notes * Philip Nguyễn MD - 04/06/2016 9:00 AM EDT Patricia Andrew referred for EDX studies by Kate Benitez, CATIA [facility] [address], [place] [address] to look for evidence of carpal tunnel syndrome. Report scanned into EDH. EMG: Abnormal study. 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 Assessment and plan: 40 years old female presented with hand numbness. 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 She has been tried wrist splint and it did not improve the hand tingling significantly. Therefore, we plan to refer patient to [facility] hand clinic for evaluation of possible injection or surgical treatment. Patient was staffed with Dr. John. Please contact us if any questions. * Smitha John MD - 04/06/2016 9:00 AM EDT Neurology Staff Note I have reviewed the above fellows's history during the visit and I agree with the details as written. The assessment and plan were formulated in discussion with me at the time of the visit and I agree with them as documented. I participated in the design and interpretation of the EDX studies. Smitha John MD documented in this encounter Plan of Treatment Not on file documented as of this encounter Visit Diagnoses Diagnosis Carpal tunnel syndrome, bilateral Carpal tunnel syndrome documented in this encounter Care Teams Well Logging Mud Analysis Captain Relationship Specialty Start Date End Date Kate Benitez APRN PCP - General 04/30/15 03/22/19 documented as of this encounter
[2024-05-17 20:28] LABS: ALT 30 U/L (14-59); AST 28 U/L (15-37); Albumin 4.1 g/dL (3.4-5.0); Alkaline Phosphatase 82 U/L (46-116); Anion Gap 6.3 mmol/L (3-11); BUN 13 mg/dL (7-18); Bilirubin, Total 0.42 mg/dL (0.2-1.0); CO2 28.7 mmol/L (21.0-32.0); CREATININE 0.9 mg/dL (0.55-1.02); Calcium 9.3 mg/dL (8.5-10.1); Calculated LDL 105 mg/dL (<100); Chloride 105 mmol/L (98-107); Cholesterol 179 mg/dL (<200); Estimated GFR 77.88 (mL/min/1.73m2); Glucose 101 mg/dL (74-106); HDL Cholesterol 64 mg/dL (40-60); Potassium 4.8 mmol/L (3.5-5.1); Sodium 140 mmol/L (136-145); Total Protein 7.9 g/dL (6.4-8.2); Triglyceride 50 mg/dL (<150)
== END 2024-05-17 16:08 | disposition home or self-care (01) ==
LOC: NCHCN 16:07
PROVIDERS: PCP Family Medicine; Visit Provider Nurse Practitioner Family
DX: Z00.00 Encounter for general adult medical examination without abnormal findings (principal)
CPT/HCPCS: 80053; 80061

== ENCOUNTER 2024-07-05 01:05 | Outpatient (CLI) | payer BC, SELFPAY ==
--- NOTE | 2024-07-05 | DI.MAMMO_ITS ---
Exam(s) MAMMO SCREENING EXAM: MAMMO SCREENING CLINICAL HISTORY: SCREENING, Z12.39 TECHNIQUE: Mammograms were interpreted according to the usual protocol including computer analysis w [employer] CAD system, tomosynthesis and C-view imaging. COMPARISON: 2015 through 2022 FINDINGS: The breasts are composed of heterogeneously dense fibroglandular densities, Breast Density category C . No suspicious masses or suspicious microcalcifications are seen. No skin thickening or abnormal axillary lymph nodes are seen. There has been no significant change from prior exams. IMPRESSION: BI-RADS Category 1, Negative mammogram. Yearly screening mammography is recommended. Breast Density Category C, heterogeneously Dense. The mammogram demonstrates the patient's breast tissue is dense. Dense breast tissue is very common a nd is not abnormal but dense breast tissue can make it harder to find cancer on a mammogram. Also, de nse breast tissue may increase breast cancer risk. This information about the result of the mammogram report was provided to the patient to raise their awareness. Use this report when you speak with the patient about their risks for breast cancer, which includes their family history. At that time, you may recommend additional screening tests (Ultrasound or MRI) as they might be useful based on their r isk. A negative radiographic report should not delay biopsy if a dominant or clinically suspicious mass is present. Up to ten percent of cancers are not identified on mammography. A negative report may reinforce clinical impression. Adenosis and dense breasts may obscure an underlying neoplasm. False positive reports average 6 to 10%.
== END 2024-07-05 01:25 ==
LOC: DI 01:05
PROVIDERS: PCP Family Medicine; Visit Provider Nurse Practitioner Family
DX: Z12.31 Encounter for screening mammogram for malignant neoplasm of breast (principal); R92.323 Mammographic fibroglandular density, bilateral breasts; R92.333 Mammographic heterogeneous density, bilateral breasts
CPT/HCPCS: 77063; 77067

== ENCOUNTER 2025-03-20 17:39 | Outpatient (REF) | payer BC, SELFPAY ==
[2025-03-20 20:50] LABS: HCT 37.2 % (36.0-46.0); HGB 12.6 g/dL (11.2-15.7); MCH 30.2 pg (27.0-33.0); MCHC 33.9 % (32.0-36.0); MCV 89 fL (80-95); MPV 10.2 fL (8.0-11.0); Platelet Count 292 10^3/uL (130-400); RBC 4.17 10^6/uL (3.93-5.22); RDW 12.3 % (11.7-14.6); RDW-SD 40.4 fL; WBC 6.80 10^3/uL (4.4-10.8)
[2025-03-20 21:11] LABS: ALT 37 U/L (14-59); AST 41 U/L (15-37); Albumin 4.0 g/dL (3.4-5.0); Alkaline Phosphatase 84 U/L (46-116); Anion Gap 10.4 mmol/L (3-11); BUN 15 mg/dL (7-18); Bilirubin, Total 0.3 mg/dL (0.2-1.0); CO2 26.6 mmol/L (21.0-32.0); Calcium 8.6 mg/dL (8.5-10.1); Chloride 105 mmol/L (98-107); Estimated GFR 89.15 (mL/min/1.73m2); Glucose 113 mg/dL (74-106); Potassium 3.7 mmol/L (3.5-5.1); Sodium 142 mmol/L (136-145); TSH (W/Ref FT4) 2.24 uIU/mL (0.36-3.74); Total Protein 7.4 g/dL (6.4-8.2)
[2025-03-20 21:57] LABS: Iron 95 ug/dL (50-170); Total Iron Binding Capacity 388 ug/dL (250-450); Transferrin Sat 24 % (15-50)
== END 2025-03-20 17:40 | disposition home or self-care (01) ==
LOC: NCHCN 17:39
PROVIDERS: PCP Family Medicine; Visit Provider Nurse Practitioner Family
DX: N92.4 Excessive bleeding in the premenopausal period (principal)
CPT/HCPCS: 80053; 85027; 83540; 83550; 84443

== ENCOUNTER 2025-04-03 16:24 | Outpatient (CLI) | payer BC, SELFPAY ==
[2025-04-03 16:22] LABS: Abs Immature Grans 0.01 10^3/uL (0.0-0.06); HCT 37.0 % (36.0-46.0); HGB 12.6 g/dL (11.2-15.7); Immature Grans % 0.2 %; MCH 30.3 pg (27.0-33.0); MCHC 34.1 % (32.0-36.0); MCV 89 fL (80-95); MPV 8.9 fL (8.0-11.0); Platelet Count 283 10^3/uL (130-400); RBC 4.16 10^6/uL (3.93-5.22); RDW 12.4 % (11.7-14.6); RDW-SD 40.7 fL; WBC 6.28 10^3/uL (4.4-10.8)
[2025-04-03 17:05] LABS: TSH (W/Ref FT4) 2.38 uIU/mL (0.36-3.74)
[2025-04-04 18:06] LABS: FSH 11.6 mIU/mL (See Note)
== END 2025-04-03 16:25 | disposition home or self-care (01) ==
LOC: LBO 16:24
PROVIDERS: PCP Family Medicine; Visit Provider Obstetrics & Gynecology
DX: N92.0 Excessive and frequent menstruation with regular cycle (principal)
CPT/HCPCS: 36415; 82670; 83001; 84443; 85025

== ENCOUNTER 2025-05-10 17:53 | Outpatient (REF) | payer BC, SELFPAY ==
--- NOTE | 2025-05-10 17:45 | DI.RAD_ITS ---
Exam(s) XR KNEE LT 4V AP,LAT,HOMERO,PAT EXAM: XR KNEE LT 4V AP,LAT,HOMERO,PAT CLINICAL HISTORY: eval pathology [id number]. TECHNIQUE: 2D digital imaging was performed. COMPARISON: CR XR KNEE RT 4V AP,LAT,HOMERO,PAT from 07/06/2022 FINDINGS: Four views No evidence of fracture. No osteochondral defects. No joint space narrowing. Bone density normal. No osseous lesions. However, there does appear to be a small amount of increased joint fluid. IMPRESSION: No significant osseous findings but there is a small amount of increased joint fluid. This may signify the presence of an internal derangement. DATA REPOSITORY: RADIATION DOSE DELIVERED:
--- NOTE | 2025-05-10 19:16 | DI.VRAD_ITS ---
PROCEDURE INFORMATION: Exam: XR Left Knee Exam date and time: 05/10/2025 6:06 PM Age: 49 years old Clinical indication: Other: Eval pathology TECHNIQUE: Imaging protocol: Radiologic exam of the left knee. Views: 4 or more views. COMPARISON: No relevant prior studies available. FINDINGS: Bones/joints: Normal. Soft tissues: Normal. IMPRESSION: No acute findings. Dictated and Authenticated by: Brian Youngblood MD. Orderin Tavon Traylor MD
== END 2025-05-10 18:13 ==
LOC: DI 17:53
PROVIDERS: PCP Family Medicine; Visit Provider Family Medicine
DX: M25.562 Pain in left knee (principal)
CPT/HCPCS: 73564

== ENCOUNTER 2025-06-14 03:43 | Outpatient (CLI) | payer BC, SELFPAY ==
--- NOTE | 2025-06-14 06:30 | DI.MRI_ITS ---
Exam(s) MR LOWER JOINT LT WO EXAM: MR LOWER JOINT LT WO CLINICAL HISTORY: lt knee pain, concern of internal derrangment,m25.562. TECHNIQUE: Multiplanar multisequence MRI was performed. COMPARISON: CR,XR XR KNEE LT 4V AP,LAT,HOMERO,PAT from 05/10/2025 FINDINGS: BONES: There is edema seen in the marrow involving the medial tibial plateau. There is also a linear area of hypointense signal paralleling the articular surface of the tibial plateau posteriorly consistent with a non depressed fracture. This is best appreciated on the coronal views. Marrow signal is otherwise within normal limits. JOINTS: Articular cartilage is unremarkable. There is a small amount of fluid in the joint space. TENDONS: Extensor mechanism: Unremarkable. Medial retinaculum: Unremarkable. Lateral retinaculum: Unremarkable. Popliteus: Unremarkable. MUSCLES: Unremarkable. MENISCI: There is intermediate signal seen within the body and posterior horn of the medial meniscus. There is hyperintense signal seen in the root of the medial meniscus consistent with a tear. The lateral meniscus is unremarkable. SOFT TISSUES: There is edema seen in the soft tissues around the knee. No focal fluid collection is seen. There is a small popliteal cyst present. LIGAMENTS: Anterior Cruciate: Unremarkable. Posterior Cruciate: Unremarkable. Medial Collateral:Unremarkable. Lateral Collateral: Unremarkable. OTHER: IMPRESSION: 1. Nondepressed medial tibial plateau fracture. 2. Tear of the root of the medial meniscus. 3. There is no evidence of a ligament tear. 4. Small joint effusion. 5. Small popliteal cyst. DATA REPOSITORY:
== END 2025-06-14 04:03 ==
LOC: DI 03:43
PROVIDERS: PCP Family Medicine; Visit Provider Physician Assistant
DX: M25.562 Pain in left knee (principal); S82.122A Displaced fracture of lateral condyle of left tibia, initial encounter for closed fracture; X58.XXXD Exposure to other specified factors, subsequent encounter
CPT/HCPCS: 73721

== ENCOUNTER 2025-06-20 10:26 | Outpatient (CLI) | payer BC, SELFPAY ==
--- NOTE | 2025-06-20 08:42 | DI.RAD_ITS ---
Exam(s) XR KNEE RT 2V AP,LAT EXAM: XR KNEE RT 2V AP,LAT CLINICAL HISTORY: Pain. TECHNIQUE: 2D digital imaging was performed of the right knee. Two views obtained. AP and lateral views were obtained. COMPARISON: CR XR KNEE RT 4V AP,LAT,HOMERO,PAT from 07/06/2022 FINDINGS: BONES: No acute fracture is present. No bony destructive lesion is seen. Postsurgical changes are seen in the proximal tibia. JOINTS: The knee is normally aligned. No joint effusion is seen. SOFT TISSUE: Normal. IMPRESSION: There is no acute abnormality. DATA REPOSITORY: RADIATION DOSE DELIVERED:
== END 2025-06-20 10:27 | disposition home or self-care (01) ==
LOC: DIORS 10:26
PROVIDERS: PCP Family Medicine; Visit Provider Student in an Organized Health Care Education/Training Program
DX: S83.241A Other tear of medial meniscus, current injury, right knee, initial encounter (principal)
CPT/HCPCS: 73560

== ENCOUNTER → 2025-07-10 01:58 | Outpatient (CLI) | payer BC, SELFPAY ==
--- NOTE | 2025-07-10 06:15 | DI.MRI_ITS ---
Exam(s) MR LOWER JOINT RT WO EXAM: MR LOWER JOINT RT WO CLINICAL HISTORY: ACUTE MEDIAL MENISCUS TEAR RT KNEE,S83.241A. TECHNIQUE: Multiplanar multisequence MRI was performed. COMPARISON: CR XR KNEE RT 4V AP,LAT,HOMERO,PAT from 07/06/2022 MR MR LOWER JOINT RT WO from 07/29/2022 MR MR LOWER JOINT LT WO from 06/14/2025 CR XR KNEE RT 2V AP,LAT from 06/20/2025 FINDINGS: BONES: There is no fracture or contusion pattern. JOINTS: A small joint effusion is present. Articular cartilage: Patellofemoral joint: Articular mild cartilage thinning at the apex. Medial femoral tibial joint: Mild cartilage thinning. Lateral femoral tibial joint: Articular cartilage is unremarkable. LIGAMENTS/TENDONS: Anterior Cruciate: Unremarkable. Posterior Cruciate: Unremarkable. Medial Collateral:Unremarkable. Lateral Collateral ligament complex: Unremarkable. Extensor mechanism: Unremarkable. Medial retinaculum: Unremarkable. Lateral retinaculum: Unremarkable. Popliteus: Unremarkable. MENISCI: The medial meniscus there is evidence of prior surgery at the posterior root. Intermediate signal in the body consistent with degenerative changes. No acute tear is identified. The lateral meniscus is unremarkable. MUSCLES: Unremarkable. SOFT TISSUES: Focal metallic artifacts noted at the posterior medial aspect of the knee as well as at the anteromedial aspect of the proximal tibia related to previous surgery. Tiny Martinez's cyst. IMPRESSION: Postsurgical changes at the posterior root of the medial meniscus. No definite superimposed acute tear. Mild degenerative changes of the medial femoral tibial joint and meniscus. DATA REPOSITORY:
== END ==
LOC: DI 01:58
PROVIDERS: PCP Family Medicine; Visit Provider Student in an Organized Health Care Education/Training Program
DX: S83.241A Other tear of medial meniscus, current injury, right knee, initial encounter (principal)
CPT/HCPCS: 73721

== ENCOUNTER 2025-07-10 03:25 | Outpatient (CLI) | payer BC, SELFPAY ==
[2025-07-10 07:33] LABS: Abs Immature Grans 0.01 10^3/uL (0.0-0.06); HCT 38.9 % (36.0-46.0); HGB 13.1 g/dL (11.2-15.7); Immature Grans % 0.2 %; MCH 29.4 pg (27.0-33.0); MCHC 33.7 % (32.0-36.0); MCV 87 fL (80-95); MPV 9.1 fL (8.0-11.0); Platelet Count 314 10^3/uL (130-400); RBC 4.45 10^6/uL (3.93-5.22); RDW 12.6 % (11.7-14.6); RDW-SD 40.3 fL; WBC 5.51 10^3/uL (4.4-10.8)
== END 2025-07-10 03:26 | disposition home or self-care (01) ==
LOC: LBO 03:25
PROVIDERS: PCP Family Medicine; Visit Provider Obstetrics & Gynecology
DX: Z01.818 Encounter for other preprocedural examination (principal)
CPT/HCPCS: 36415; 86850; 86900; 86901; 85025

== ENCOUNTER 2025-07-11 07:04 | Day surgery (SDC) | payer BC, SELFPAY ==
[2025-07-11 07:23] VITALS: BP 122/92; PULSE 78; RESP 20; TEMP 36.7; O2SAT 100
[2025-07-11] MEDS: Lactated Ringers 1,000 ML 125 ML IV (07:46)
--- NOTE | 2025-07-11 08:12 | W.ANESPRE ---
General Info Date of Service Date Performed: 07/11/25 Height: 5 ft 5 in Weight: 67.6 kg Body Mass Index (BMI): 24.7 Surgical Procedure: Operation Date: 07/11/25 08:40 Proposed Procedure Side Surgeon p Dilation & Curettage with Hysteroscopy Cate Denis DO Meds Allergies and Home Medications Allergies Allergy/AdvReac Type Severity Reaction Status Date / Time tramadol AdvReac Intermediate projectile Verified 07/11/25 07:23 vomitting Home Medication Medication Instructions Recorded progesterone micronized 100 mg 100 mg PO QPM 07/09/25 capsule (Prometrium) Current Visit Medications: Current Medications Generic Name Dose Route Start Last Admin Trade Name Freq PRN Reason Stop Dose Admin Ringer's Solution 1,000 mls @ 125 mls/hr 07/11/25 06:00 07/11/25 07:46 IV 07/11/25 23:59 125 mls/hr INFUSION ALISON Administration IV Miscellaneous Supplies 1 each 07/11/25 06:00 Iv Access IV 07/11/25 23:59 DIRECTED ALISON Sodium Chloride 0 ml 07/11/25 06:00 Normal Saline Flush 10 Ml Syr IV 07/11/25 23:59 PRN PRN Sodium Chloride 0 ml 07/11/25 06:00 Normal Saline 10 Ml Vial IJ 07/11/25 23:59 DIRECTED PRN Sterile Water 0 ml 07/11/25 06:00 Water,Injection,Sterile 10 Ml Vial IJ 07/11/25 23:59 DIRECTED PRN PFSH Active Problems Active Problems: Problem Status Onset Code Dysfunctional uterine bleeding Acute N93.8 Thickened endometrium Acute R93.89 Tear of medial meniscus of left knee Acute S83.242A Internal derangement of left knee Acute M23.92 Acute medial meniscus tear of right knee Acute 06/21/22 S83.241A Normal colonoscopy Acute Rosacea Acute L71.9 Bilateral carpal tunnel syndrome Acute G56.03 Adjustment disorder with mixed anxiety and depressed mood Acute F43.23 Palpitations Acute R00.2 Migraines Chronic G43.909 Screening for colon cancer Acute Z12.11 Medical History Medical History Adjustment disorder with anxiety Menorrhagia Menstrual migraine Surgical History Surgical History History of colonoscopy (~11/2021) Tobacco Smoking/Tobacco Use Status: Never Passive smoking exposure: Yes Alcohol Alcohol Intake: current Alcohol intake frequency: a few times a week Alcohol type: beer and wine Substance Use Substance use: Never Substance use type: does not use Vital Signs and Lab Results Vital Signs Most Recent Vital Signs in EMR: Most Recent Vital Signs Temp Pulse Resp BP Pulse Ox 36.7 C 78 20 122/92 H 100 07/11/25 07:23 07/11/25 07:23 07/11/25 07:23 07/11/25 07:23 07/11/25 07:23 Point of Care Results Point of Care Results: POC- Test(urine) Negative 07/11/25 07:45 Lab Results Blood Type / Crossmatch: Antibody Screen NEGATIVE 07/10/25 Complete Blood Count: WBC, (4.4-10.8) 5.51 10^3/uL 07/10/25, 07:25 RBC, (3.93-5.22) 4.45 10^6/uL 07/10/25, 07:25 Hgb, (11.2-15.7) 13.1 g/dL 07/10/25, 07:25 Hct, (36.0-46.0) 38.9 % 07/10/25, 07:25 Plt Count, (130-400) 314 10^3/uL 07/10/25, 07:25 Anesthesia Assessment and Plan Anesthesia History Personal History: No History of Anesthesia Complications Family History: No Family History of Anesthesia Complications Exercise Tolerance Exercise Tolerance: Metabolic Equivalents>4 Pertinent Negatives Pertinent Negatives: No Major Cardiovascular Symptoms or Complaints, No Major Pulmonary Symptoms or Complaints and No History of CVA/TIA Cardiac & Pulmonary Exam Cardiac Exam: Normal S1/S2 Heart Sounds Pulmonary Exam: Clear Bilateral Breath Sounds Implantable Cardiac Device Does patient have a Pacemaker or an ICD?: No Airway Exam Known Difficult Airway: No Mallampati Class: 1 Mouth Opening: Normal (> 3cm) Thyromental Distance: Greater than 3 cm Neck Range of Motion: Full ROM Neck Circumference: Normal Teeth Condition: Normal Dentition ASA Classification ASA Score: ASA 2 Emergency Case?: No NPO Status NPO Status: NPO Clears >2 hours, Solids >8 hours Status Status: Negative HCG Anesthesia Plan Resuscitation Status: Full Code Anesthesia Technique: General Anesthesia Airway Planned: Natural Airway Monitors Used: Standard Monitors Preoperative Comments:: 50 yo female for suction D&C. Sig PMHx: anxiety, migraines, palpitations (anxiety related), never smoker, occ EtOH. Previous Anes: - colo with prop, no issues. - ECTR (bilat), prop/hydro, no issues.
[2025-07-11 08:13] VITALS: BMI 24.7
--- NOTE | 2025-07-11 09:02 | ENDO_PTH ---
PATIENT: Patricia Andrew LOC: [facility] U#:[id number] AGE/SX: 50/F ROOM: RE07/11/[address]: Cate Denis DO : 1975 BED: DIS: 07/11/2025 SPEC #: [id number] RECD: 07/11/25 12:35 STATUS: JASON RE #: [id number] MICHELINE: 07/11/25 09:[address]: Cate Denis DEPT: Surgical Specimen RECD BY: Kareen Holcomb ENTERED: 07/11/25 12:36 SP TYPE: Endo OTHR DR: JOYCE SUAREZ, LISHA Tissues: 1 - ENDOCERVICAL BX/CURRETTE 2 - ENDOMETRIUM BX/CURRETTE 3 - CERVICAL BIOPSY Procedures: GROSS AND MICRO LEVEL 4 Comments: [id number]
--- NOTE | 2025-07-11 09:13 | ROE_ITS ---
Operative Note Operative Note PRE-OP DIAGNOSIS: Dysfunctional uterine bleeding, thickened endometrium POST-OP DIAGNOSIS: same Endometrial polyp PROCEDURE: Hysteroscopy with dilation and curettage, fractional. Removal of endometrial polyp SURGEON: Cate Denis ANESTHESIA TYPE: General:No Airway Refer to Anesthesia Record ESTIMATED BLOOD LOSS: 5 PATHOLOGY: other (1. Endocervical curettage 2. Endometrial curettage 3. Endometrial polyp) COMPLICATIONS: None Patient was transported to: same day Patient's condition: stable Indications: Thickened endometrium, dysfunctional uterine bleeding. Findings: Smooth regular endocervix and endometrial lining. Posterior lower uterine segment polyp, 2 cm x 1 cm. Easily removed. Procedure Description: After full informed consent was obtained, patient taken the operating suite with IV running. She had voided just prior to presentation. She was placed in dorsal supine position and anesthesia administered. She was then placed in the modified dorsolithotomy position and prepped and draped in the usual sterile fashion. No antibiotics were warranted for infection prophylaxis. Pneumatic compression stockings were used for DVT prophylaxis. Exam under anesthesia revealed a uterus that was midline and mobile. Timeout was held. Speculum inserted into the vaginal vault and the cervical os identified. Single-tooth tenaculum is used to grasp the anterior lip of the cervix. In a gentle sequential fashion, cervical os was dilated to the point that a 4 mm hysteroscope could be passed without difficulty. With fluid monitoring system, instillation of normal saline was performed to evaluate the entire endocervix and endometrium. Endocervical canal was noted to be smooth and regular. Endometrial canal was also smooth and regular and both tubal ostia visualized. As of note there was a 2 x 1 cm polyp in the posterior lower uterine segment. H ysteroscope was removed and a Bo stone polyp forcep used to remove the polyp in toto. Fractional curettage was performed first with endocervical curettings followed by endometrial curettings. Single-tooth tenaculum was removed and puncture sites are hemostatic. Speculum was removed from the vaginal vault. The patient was returned to the dorsal supine position and awoke from anesthesia without difficulty. She was taken the same-day surgical area for recovery. EBL: 5 mL Fluids: Crystalloid per anesthesia +50 cc fluid deficit at the time of hysteroscope Pathology: 1. Endocervical curettage 2. Endometrial curettage 3. Endometrial polyp. Complications: None apparent Findings: As above. Date of Procedure: 07/11/25
[2025-07-11 09:18] VITALS: BP 119/85; PULSE 62; RESP 16; TEMP 36.2; O2SAT 100
[2025-07-11 09:36] VITALS: BP 135/86; PULSE 53; RESP 20; TEMP 36.5; O2SAT 100
--- NOTE | 2025-07-11 11:43 | W.ANESPOSTOP ---
Postoperative Evaluation Date, Time and Location Date Performed: 07/11/25 Time Performed: 11:43 Patient Location: Day Surgery Unit Vital Signs Most Recent Imported Vital Signs: Most Recent Vital Signs Temp Pulse Resp BP Pulse Ox 36.5 C 53 L 20 135/86 100 07/11/25 09:36 07/11/25 09:36 07/11/25 09:36 07/11/25 09:36 07/11/25 09:36 Pain Score Most Recent Pain Score: Most Recent Pain Score Pain Level 1 07/11/25 09:18 Assessment Mental Status: Awake (Alert & Oriented to Patient Baseline) Airway and Respiratory Function: Patent airway with normal (patient baseline) respiratory exam Cardiovascular Function: Hemodynamically Stable Hydration Status: Adequately Hydrated Nausea & Vomiting: No Nausea or Vomiting Pain: Pain is tolerable per patient Peripheral Nerve Block: Patient did not receive a nerve block
== END 2025-07-11 10:00 | disposition home or self-care (01) ==
PROVIDERS: PCP Nurse Practitioner Family; Visit Provider Obstetrics & Gynecology
PROC: 0UDB8ZZ Extraction of Endometrium, Via Natural or Artificial Opening Endoscopic (ICD-10-PCS; CPT 58558; principal; 2025-07-11 08:30)
DX: N93.9 Abnormal uterine and vaginal bleeding, unspecified (principal); R93.89 Abnormal findings on diagnostic imaging of other specified body structures; N84.0 Polyp of corpus uteri
CPT/HCPCS: 58558; 88305; J0131; J1885; J2704; J3475

== ENCOUNTER 2025-07-18 10:59 | Outpatient (CLI) | payer BC, SELFPAY ==
--- NOTE | 2025-07-18 08:30 | DI.RAD_ITS ---
Exam(s) XR LUMBAR SPINE COMPLETE EXAM: XR LUMBAR SPINE COMPLETE CLINICAL HISTORY: pain. TECHNIQUE: 2D digital imaging was performed of the lumbar spine. Five images were obtained. AP, lateral, right oblique, left oblique and L5-S1 spot views were obtained. COMPARISON: No exams were available for comparison FINDINGS: BONES: No fracture or destructive lesion. Vertebral bodies are unremarkable. There are degenerative changes of the facets at L4-5 and L5-S1. DISKS: There is mild disc space narrowing at L2-3. ALIGNMENT: There is a mild right convex lumbar scoliosis. No spondylolysis or spondylolisthesis. SOFT TISSUE: Normal. IMPRESSION: [id number] degenerative changes seen in the lumbar spine. DATA REPOSITORY: RADIATION DOSE DELIVERED:
== END 2025-07-18 11:00 | disposition home or self-care (01) ==
LOC: DIORS 10:59
PROVIDERS: PCP Nurse Practitioner Family; Visit Provider Physician Assistant
DX: M51.360 Other intervertebral disc degeneration, lumbar region with discogenic back pain only (principal)
CPT/HCPCS: 72110